=== PATIENT | male | born 1970 | race American Indian/Alaskan Native ===

== ENCOUNTER 2020-05-27 11:41 | Inpatient (IN) | payer MEDICAID ==
[2020-05-27 12:24] LABS: Basophils % (Auto) 0.4 % (0.0-1.8); Eosinophils # (Auto) 0.1 K/mm3 (0.0-0.4); Eosinophils % (Auto) 0.9 % (0.0-4.3); Hematocrit 35.8 % (35.5-45.6); Hemoglobin 11.7 gm/dl (11.8-15.2); Lymphocytes # (Auto) 2.5 K/mm3 (1.2-5.4); Lymphocytes % (Auto) 31.2 % (13.4-35.0); Mean Corpuscular HGB Conc 33 % (32-34); Mean Corpuscular Volume 82 fl (84-94); Monocytes # (Auto) 0.8 K/mm3 (0.0-0.8); Monocytes % (Auto) 9.9 % (0.0-7.3); Platelet Count 314 K/mm3 (140-440); Red Blood Count 4.37 M/mm3 (3.65-5.03); Red Cell Distribution Width 15.4 % (13.2-15.2)
--- NOTE | 2020-05-27 12:30 | XRay Report ---
CHEST 1 VIEW 05/27/2020 12:11 PM INDICATION / CLINICAL INFORMATION: dyspnea, speech deficit. COMPARISON: None available. FINDINGS: SUPPORT DEVICES: None. HEART / MEDIASTINUM: No significant abnormality. LUNGS / PLEURA: Clear lungs. No significant pleural effusion. No pneumothorax. ADDITIONAL FINDINGS: No significant additional findings. IMPRESSION: 1. No acute abnormality of the chest. Signer Name: Edis Kumari MD Signed: 05/27/2020 12:25 PM Workstation Name: [id number]
[2020-05-27 12:35] LABS: INR 0.91 (0.87-1.13)
[2020-05-27 12:36] LABS: Partial Thromboplastin Time 29.4 Sec. (24.2-36.6)
--- NOTE | 2020-05-27 12:38 | Emergency Department Report ---
Blank Doc - Documentation Documentation: [facility] Consult Note # Demographics Consult Type: Acute Stroke Level 2 (4.5-24 hrs) Patient Location: Emergency Room First Name: Varun Last Name: Johnson Gender: Male Time of Initial Page ( Time): 05/27/2020, 11:55 Time of Return Call ( Time): 05/27/2020, 11:55 # HPI History: took a prednisone, felt funny after and then people felt that his voice is slurred. no other deficits. has basleine right sided facial droop from a prior stroke, this is not new today # Scores Time of exam and NIHSS ( Time): 05/27/2020, 11:57 Level of Consciousness 1a: [0] = Alert; keenly responsive LOC Questions 1b: [0] = Answers both questions correctly LOC Commands 1c: [0] = Performs both tasks correctly Best Gaze 2: [0] = Normal Visual 3: [0] = No visual loss Facial Palsy 4: [2] = Partial paralysis Motor Arm Left 5a: [0] = No drift Motor Arm Right 5b: [0] = No drift Motor Leg Left 6a: [0] = No drift Motor Leg Right 6b: [0] = No drift Limb Ataxia 7: [0] = Absent Sensory 8: [0] = Normal Best Language 9: [1] = Veyg-je-tjxduzry aphasia Dysarthria 10: [1] = Matu-hi-acpbxqdw dysarthria Extinction and Inattention 11: [0] = No abnormality NIHSS Total: 4 # PMH-FH-SH Past Medical History: stroke # Assessment Impression: Ischemic Stroke (Subacute), Stroke Mimic # Plan Thrombolytic/Intervention: NOT IV Thrombolytic or IA Intervention Thrombolytic Exclusion: > 4.5 hours Intraarterial Exclusion: clinically consistent with small vessel disease Blood Pressure Management: labetolol Target Blood Pressure: SBP < 220, SBP > 100 Labs: hemoglobin A1c, lipid panel Imaging: (urgency: STAT in ED): CT Angiogram Head and CT Angiogram Neck AND call back with results if abnormal Imaging: (urgency: routine admission): MRI Brain without contrast Diagnostic Test: echo without bubble study Therapy/Evaluation: NPO until swallow evaluation, PT/OT evaluation, speech/ swallow consultation Medication: aspirin 81 mg daily, start statin with goal of LDL < 70 DVT Prophylaxis: SCD Other: LDL < 70, If patient has any neurological deterioration please call me back immediately, permissive hypertension, telemetry monitoring, I have discussed my recommendations with the referring provider Additional Recommendations: Metabolic and infectious evaluation. Disposition: admit # Logistics Telemedicine: Interactive 2 way audio and visual telecommunication technology was utilized during this visit
[2020-05-27 12:42] LABS: BUN/Creatinine Ratio 13; Blood Urea Nitrogen 17 mg/dL (9-20); Calcium 8.5 mg/dL (8.4-10.2); Hemolysis Index 41
[2020-05-27] MEDS ORDERED: ASPIRIN 81 MG TAB CHEW PO ONE (13:24)
--- NOTE | 2020-05-27 13:39 | Emergency Department Report ---
ED Neuro Deficit HPI - General Chief Complaint: Neuro Symptoms/Deficit Stated Complaint: STROKE Time Seen by Provider: 05/27/20 11:44 Source: EMS Mode of arrival: Stretcher Limitations: No Limitations - History of Present Illness Initial Comments: CC: trouble with speech HPI: THis is a 50 yo with hx of CVA ?Jackson's Palsy, HTN, DM, gout, dyslipidemia who presents with difficulty speaking since this morning. Patient was normal last night. He woke up approximately 8 or 9 AM with slurred speech. He also had difficulty getting his words out. The symptoms occurred shortly after taking prednisone. He denies trouble with walking. He denies paralysis. 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 He does not know if he had a stroke or if his diagnosis was Jackson's palsy. PCP Dr. Reggie Hanna -: Sudden, unknown Location: dysarthria, other (aphasia) History of same: No Place: home Severity: mild Improves With: none Worsens With: none On Anticoagulants: No Context: sudden onset Associated Symptoms: denies other symptoms Treatments Prior to Arrival: other (EMS transportation) - Related Data Home Medications: Home Medications Medication Instructions Recorded Confirmed Last Taken Albuterol Mdi (or & Nicu Only) 1 puff INHALATION PRN PRN 03/23/15 06/06/15 06/05/15 [ProAir HFA Inhaler] AtorvaSTATin [Lipitor] 40 mg PO DAILY 03/23/15 06/06/15 06/05/15 Docusate Sodium [Dok] 100 mg PO DAILY 03/23/15 06/06/15 Unknown Famotidine [Pepcid] 20 mg PO DAILY 03/23/15 06/06/15 Unknown Ferrous Sulfate [Feosol 325 MG tab] 325 mg PO DAILY 03/23/15 06/06/15 06/05/15 Indomethacin 50 mg PO PRN PRN 03/23/15 06/06/15 06/04/15 Lisinopril/Hydrochlorothiazide 1 tab PO DAILY 03/23/15 06/06/15 06/05/15 [Zestoretic 10-12.5 mg] predniSONE [Deltasone] 20 mg PO DAILY 03/23/15 06/06/15 Unknown Colchicine 0.6 mg PO DAILY 06/06/15 06/06/15 06/05/15 Furosemide [Lasix] 20 mg PO QDAY 06/06/15 06/06/15 06/05/15 Glimepiride 4 mg PO DAILY 06/06/15 06/06/15 06/05/15 Proventil 0.083% NEBS 90 mcg INHALATION Q4HR PRN 06/06/15 06/06/15 06/05/15 amLODIPine 10 mg PO DAILY 06/06/15 06/06/15 06/05/15 Allergies/Adverse Reactions: Allergies Allergy/AdvReac Type Severity Reaction Status Date / Time No Known Allergies Allergy Verified 07/30/14 13:04 ED Review of Systems ROS: Stated complaint: STROKE Other details as noted in HPI Comment: All other systems reviewed and negative Constitutional: denies: fever, malaise Respiratory: denies: cough, shortness of breath Gastrointestinal: denies: abdominal pain, nausea, vomiting Musculoskeletal: arthralgia (Recent gout flare) ED Past Medical Hx - Past Medical History Previous Medical History?: Yes Hx Hypertension: Yes Hx Diabetes: Yes Hx GERD: Yes Hx Asthma: Yes - Surgical History Past Surgical History?: Yes Hx Cholecystectomy: Yes - Social History Smoking Status: Never Smoker Substance Use Type: None - Medications Home Medications: Home Medications Medication Instructions Recorded Confirmed Last Taken Type Albuterol Mdi (or & Nicu Only) 1 puff INHALATION PRN PRN 03/23/15 06/06/15 06/05/15 History [ProAir HFA Inhaler] AtorvaSTATin [Lipitor] 40 mg PO DAILY 03/23/15 06/06/15 06/05/15 History Docusate Sodium [Dok] 100 mg PO DAILY 03/23/15 06/06/15 Unknown History Famotidine [Pepcid] 20 mg PO DAILY 03/23/15 06/06/15 Unknown History Ferrous Sulfate [Feosol 325 MG tab] 325 mg PO DAILY 03/23/15 06/06/15 06/05/15 History Indomethacin 50 mg PO PRN PRN 03/23/15 06/06/15 06/04/15 History Lisinopril/Hydrochlorothiazide 1 tab PO DAILY 03/23/15 06/06/15 06/05/15 History [Zestoretic 10-12.5 mg] predniSONE [Deltasone] 20 mg PO DAILY 03/23/15 06/06/15 Unknown History Colchicine 0.6 mg PO DAILY 06/06/15 06/06/15 06/05/15 History Furosemide [Lasix] 20 mg PO QDAY 06/06/15 06/06/15 06/05/15 History Glimepiride 4 mg PO DAILY 06/06/15 06/06/15 06/05/15 History Proventil 0.083% NEBS 90 mcg INHALATION Q4HR PRN 06/06/15 06/06/15 06/05/15 History amLODIPine 10 mg PO DAILY 06/06/15 06/06/15 06/05/15 History ED Neuro Physical Exam - General Limitations: No Limitations General appearance: alert, in no apparent distress Suspected Stroke: Yes - Head Head exam: Present: atraumatic, normocephalic - Eye Eye exam: Present: normal appearance - ENT ENT exam: Present: mucous membranes moist - Neck Neck exam: Present: normal inspection - Respiratory Respiratory exam: Present: normal lung sounds bilaterally. Absent: respiratory distress - Cardiovascular Cardiovascular Exam: Present: regular rate, normal rhythm, normal heart sounds. Absent: systolic murmur, diastolic murmur, rubs, gallop - GI/Abdominal GI/Abdominal exam: Present: soft, normal bowel sounds. Absent: distended, tenderness, guarding, rebound - Rectal Rectal exam: Present: deferred - Extremities Exam Extremities exam: Present: normal inspection - Neurological Exam Neurological exam: Present: alert, oriented X3 - NIHSS Assessment Interval: Baseline 1a. Level of Consciousness: alert/keenly responsive 1b. LOC Questions: answers both correctly 1c. LOC Commands: performs tasks correctly 2. Best Gaze: normal 3. Visual: no visual loss 4. Facial Palsy: unilateral complete paralysis 5b. Motor Arm Right: no drift 5a. Motor Arm Left: no drift 6a. Motor Leg Left: no drift 6b. Motor Leg Right: no drift 7. Limb Ataxia: absent 8. Sensory: normal 9. Best Language: mild/moderate aphasia 10. Dysarthria: mild/moderate dysarthria 11. Extinction/Inattention: no abnormality Total Score: 5 Stroke Severity: Moderate Stroke - Psychiatric Psychiatric exam: Present: normal affect, normal mood - Skin Skin exam: Present: warm, dry, intact, normal color. Absent: rash ED Course Vital Signs 05/27/20 12:04 Temperature 98.8 F Pulse Rate 74 Respiratory 24 Rate Blood Pressure 170/81 [Left] O2 Sat by Pulse 94 Oximetry - Lab Data Result diagrams: 05/27/20 12:09 05/27/20 12:09 Lab Results 05/27/20 05/27/20 05/27/20 Range/Units 12:09 12:09 12:09 WBC 8.0 (4.5-11.0) K/mm3 RBC 4.37 (3.65-5.03) M/mm3 Hgb 11.7 L (11.8-15.2) gm/dl Hct 35.8 (35.5-45.6) % MCV 82 L (84-94) fl MCH 27 L (28-32) pg MCHC 33 (32-34) % RDW 15.4 H (13.2-15.2) % Plt Count 314 (140-440) K/mm3 Lymph % (Auto) 31.2 (13.4-35.0) % [place] % (Auto) 9.9 H (0.0-7.3) % Eos % (Auto) 0.9 (0.0-4.3) % Baso % (Auto) 0.4 (0.0-1.8) % Lymph # (Auto) 2.5 (1.2-5.4) K/mm3 [place] # (Auto) 0.8 (0.0-0.8) K/mm3 Eos # (Auto) 0.1 (0.0-0.4) K/mm3 Baso # (Auto) 0.0 (0.0-0.1) K/mm3 Seg Neutrophils % 57.6 (40.0-70.0) % Seg Neutrophils # 4.6 (1.8-7.7) K/mm3 PT 12.2 (12.2-14.9) Sec. INR 0.91 (0.87-1.13) APTT 29.4 (24.2-36.6) Sec. Thrombin Time (15.1-19.6) Sec. Sodium 138 (137-145) mmol/L Potassium 4.2 (3.6-5.0) mmol/L Chloride 103.6 (98-107) mmol/L Carbon Dioxide 24 (22-30) mmol/L Anion Gap 15 mmol/L BUN 17 (9-20) mg/dL Creatinine 1.3 (0.8-1.3) mg/dL Estimated GFR > 60 ml/min BUN/Creatinine Ratio 13 % Glucose 88 (75-100) mg/dL Calcium 8.5 (8.4-10.2) mg/dL Troponin T < 0.010 (0.00-0.029) ng/mL NT-Pro-B Natriuret Pep (0-450) pg/mL 05/27/20 05/27/20 Range/Units 12:09 12:09 WBC (4.5-11.0) K/mm3 RBC (3.65-5.03) M/mm3 Hgb (11.8-15.2) gm/dl Hct (35.5-45.6) % MCV (84-94) fl MCH (28-32) pg MCHC (32-34) % RDW (13.2-15.2) % Plt Count (140-440) K/mm3 Lymph % (Auto) (13.4-35.0) % [place] % (Auto) (0.0-7.3) % Eos % (Auto) (0.0-4.3) % Baso % (Auto) (0.0-1.8) % Lymph # (Auto) (1.2-5.4) K/mm3 [place] # (Auto) (0.0-0.8) K/mm3 Eos # (Auto) (0.0-0.4) K/mm3 Baso # (Auto) (0.0-0.1) K/mm3 Seg Neutrophils % (40.0-70.0) % Seg Neutrophils # (1.8-7.7) K/mm3 PT (12.2-14.9) Sec. INR (0.87-1.13) APTT (24.2-36.6) Sec. Thrombin Time 16.9 (15.1-19.6) Sec. Sodium (137-145) mmol/L Potassium (3.6-5.0) mmol/L Chloride (98-107) mmol/L Carbon Dioxide (22-30) mmol/L Anion Gap mmol/L BUN (9-20) mg/dL Creatinine (0.8-1.3) mg/dL Estimated GFR ml/min BUN/Creatinine Ratio % Glucose (75-100) mg/dL Calcium (8.4-10.2) mg/dL Troponin T (0.00-0.029) ng/mL NT-Pro-B Natriuret Pep 42.01 (0-450) pg/mL - EKG Data -: EKG Interpreted by Me EKG shows normal: sinus rhythm, axis, intervals, QRS complexes, ST-T waves Rate: normal Interpretation: normal EKG 05/27/20 13:36 EKG obtained 1228 EKG interpreted by me Rate 75 bpm normal sinus rhythm normal rate normal axis normal intervals no ST elevation no ST-T signs of ischemia normal EKG - Radiology Data Radiology results: report reviewed Chest radiograph: No acute process according radiology findings, CT head no acute findings according to radiology impression CT head/brain wo con INDICATION / CLINICAL INFORMATION: 62 years Male; 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 TECHNIQUE: Routine CT head without contrast. All CT scans at this location are performed using CT dose reduction for ALARA by means of automated exposure control. COMPARISON: None. FINDINGS: BRAIN / INTRACRANIAL CONTENTS: Encephalomalacia seen in the right frontal and temporal lobes-would question history of prior trauma. Otherwise, no acute hemorrhage, mass effect, midline shift, hydrocephalus, or acute, large territorial infarct. No signs of significant atrophy or chronic infarct. No significant white matter abnormality seen. CRANIOCERVICAL JUNCTION: No significant abnormality. ORBITS: No significant abnormality of visualized orbits. SINUSES / MASTOIDS: Mild mucosal thickening seen in the ethmoids. There is also mild mucosal thickening suggested in the mastoids. ADDITIONAL FINDINGS: None. IMPRESSION: 1. No focal mass, hemorrhage, hydrocephalus, or acute, large territorial infarct. - Medical Decision Making Clinical impression TIA with aphasia dysarthria indicative of small vessel disease. CT angiogram of the head and neck not performed due to resolved symptoms. Thrombectomy is not indicated in this scenario. Patient received aspirin therapy. Work-up otherwise unremarkable CBC chemistry PT PTT within normal limits. Patient is admitted to the hospitalist service. Critical care attestation.: If time is entered above; I have spent that time in minutes in the direct care of this critically ill patient, excluding procedure time. ED Disposition Clinical Impression: TIA (transient ischemic attack) Disposition: OP ADMIT IP TO THIS HOSP Is pt being admited?: Yes Does the pt Need Aspirin: No
--- NOTE | 2020-05-27 16:44 | History and Physical Report ---
History of Present Illness Date of examination: 05/27/20 Date of admission: 05/27/20 13:47 Chief complaint: Difficulty talking and left-sided weakness since morning History of present illness: 50-year-old with history of questionable cerebrovascular accident comes in for right facial weakness and difficulty talking because of the right facial weakness. No weakness in the right upper extremity and right lower extremity. Patient was normal last night. Patient has some slurred speech because of the right facial weakness. Able to move his right upper and right lower extremity. Can walk. - Past Medical History -- Yes --Hypertension: Yes --Diabetes: Yes --GERD: Yes --Asthma: Yes - Surgical History Past Surgical History?: Yes --Cholecystectomy: Yes - Social History Smoking Status: Never Smoker Review of Systems ROS: Constitutional no weight loss or weight gain no fever or chills HEENT no sore throat no post nasal drip no diplopia Neck no neck stiffness no lymph gland enlargement Chest and lungs no shortness of breath cough or wheezing CVS no chest pain no diaphoresis no palpitations GI no nausea no vomiting no diarrhea Genitourinary system no dysuria no flank pain Musculoskeletal system no muscle pains no joint pains 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 Skin no rash no itching Psychiatric no depression no homicidal or suicidal tendencies Hematologic no lymphedema or bruising Endocrine no polydipsia no polyuria no cold intolerance no heat intolerance Medications and Allergies Allergies Allergy/AdvReac Type Severity Reaction Status Date / Time No Known Allergies Allergy Verified 07/30/14 13:04 Home Medications Medication Instructions Recorded Confirmed Last Taken Type Albuterol Mdi (or & Nicu Only) 1 puff INHALATION PRN PRN 03/23/15 05/27/20 06/05/15 History [ProAir HFA Inhaler] AtorvaSTATin [Lipitor] 40 mg PO DAILY 03/23/15 05/27/20 1 Day Ago History ~05/26/20 Docusate Sodium [Dok] 100 mg PO DAILY 03/23/15 05/27/20 Unknown History Famotidine [Pepcid] 20 mg PO DAILY 03/23/15 05/27/20 1 Day Ago History ~05/26/20 Ferrous Sulfate [Feosol 325 MG tab] 325 mg PO DAILY 03/23/15 05/27/20 1 Day Ago History ~05/26/20 predniSONE [Deltasone] 20 mg PO DAILY 03/23/15 05/27/20 Unknown History Glimepiride 4 mg PO DAILY 06/06/15 05/27/20 1 Day Ago History ~05/26/20 Proventil 0.083% NEBS 90 mcg INHALATION Q4HR PRN 06/06/15 05/27/20 06/05/15 History Ascorbic Acid [Vitamin C] 1,000 mg PO 05/27/20 1 Day Ago History ~05/26/20 Gabapentin 300 mg PO BID 05/27/20 05/27/20 1 Week Ago History ~05/20/20 Tizanidine HCl [Zanaflex 2mg CAP] 2 mg PO TID 05/27/20 05/27/20 2 Days Ago Histo ry ~05/25/20 Torsemide [Demadex] 20 mg PO BID 05/27/20 05/27/20 1 Day Ago History ~05/26/20 labetaloL [Labetalol 200mg TAB] 200 mg PO BID 05/27/20 05/27/20 1 Day Ago History ~05/26/20 Exam - Constitutional Vitals: Temp Pulse Resp BP Pulse Ox 98.8 F 75 13 160/85 97 05/27/20 12:04 05/27/20 13:54 05/27/20 13:54 05/27/20 13:54 05/27/20 13:54 General appearance: Present: no acute distress, well-nourished - EENT Eyes: Present: PERRL ENT: hearing intact, clear oral mucosa - Neck Neck: Present: supple, normal ROM - Respiratory Respiratory effort: normal Respiratory: bilateral: CTA - Cardiovascular Heart rate: 78 Rhythm: regular Heart Sounds: Present: S1 & S2. Absent: rub, click - Extremities Extremities: pulses symmetrical, No edema Peripheral Pulses: within normal limits - Abdominal General gastrointestinal: Present: soft, non-tender, non-distended, normal bowel sounds Male genitourinary: Present: normal - Integumentary Integumentary: Present: clear, warm, dry - Musculoskeletal Musculoskeletal: strength equal bilaterally, other (Right facial weakness) - Psychiatric Psychiatric: appropriate mood/affect, intact judgment & insight - Neurologic Neurologic: CNII-XII intact, moves all extremities, other (Right facial weakness) - Allied Health Allied health notes reviewed: nursing, case management HEART Score - HEART Score History: Moderately suspicious Age: 45-65 Risk factors: 1-2 risk factors Troponin: Troponin T < 0.010 ng/mL (0.00-0.029) 05/27/20 12:09 Troponin: < normal limit - Critical Actions Critical Actions: 0-3 pts:0.9-1.7%risk of adverse cardiac event.Candidate for discharge Results - Labs CBC & Chem 7: 05/28/20 04:32 05/28/20 04:32 Labs: Laboratory Last Values WBC 8.0 K/mm3 (4.5-11.0) 05/27/20 12:09 RBC 4.37 M/mm3 (3.65-5.03) 05/27/20 12:09 Hgb 11.7 gm/dl (11.8-15.2) L 05/27/20 12:09 Hct 35.8 % (35.5-45.6) 05/27/20 12:09 MCV 82 fl (84-94) L 05/27/20 12:09 MCH 27 pg (28-32) L 05/27/20 12:09 MCHC 33 % (32-34) 05/27/20 12:09 RDW 15.4 % (13.2-15.2) H 05/27/20 12:09 Plt Count 314 K/mm3 (140-440) 05/27/20 12:09 Lymph % (Auto) 31.2 % (13.4-35.0) 05/27/20 12:09 [place] % (Auto) 9.9 % (0.0-7.3) H 05/27/20 12:09 Eos % (Auto) 0.9 % (0.0-4.3) 05/27/20 12:09 Baso % (Auto) 0.4 % (0.0-1.8) 05/27/20 12:09 Lymph # (Auto) 2.5 K/mm3 (1.2-5.4) 05/27/20 12:09 [place] # (Auto) 0.8 K/mm3 (0.0-0.8) 05/27/20 12:09 Eos # (Auto) 0.1 K/mm3 (0.0-0.4) 05/27/20 12:09 Baso # (Auto) 0.0 K/mm3 (0.0-0.1) 05/27/20 12:09 Seg Neutrophils % 57.6 % (40.0-70.0) 05/27/20 12:09 Seg Neutrophils # 4.6 K/mm3 (1.8-7.7) 05/27/20 12:09 PT 12.2 Sec. (12.2-14.9) 05/27/20 12:09 INR 0.91 (0.87-1.13) 05/27/20 12:09 APTT 29.4 Sec. (24.2-36.6) 05/27/20 12:09 Thrombin Time 16.9 Sec. (15.1-19.6) 05/27/20 12:09 Sodium 138 mmol/L (137-145) 05/27/20 12:09 Potassium 4.2 mmol/L (3.6-5.0) 05/27/20 12:09 Chloride 103.6 mmol/L (98-107) 05/27/20 12:09 Carbon Dioxide 24 mmol/L (22-30) 05/27/20 12:09 Anion Gap 15 mmol/L 05/27/20 12:09 BUN 17 mg/dL (9-20) 05/27/20 12:09 Creatinine 1.3 mg/dL (0.8-1.3) 05/27/20 12:09 Estimated GFR > 60 ml/min 05/27/20 12:09 BUN/Creatinine Ratio 13 % 05/27/20 12:09 Glucose 88 mg/dL (75-100) 05/27/20 12:09 Calcium 8.5 mg/dL (8.4-10.2) 05/27/20 12:09 Troponin T < 0.010 ng/mL (0.00-0.029) 05/27/20 12:09 NT-Pro-B Natriuret Pep 42.01 pg/mL (0-450) 05/27/20 12:09 Short CBC 05/27/20 Range/Units 12:09 WBC 8.0 (4.5-11.0) K/mm3 Hgb 11.7 L (11.8-15.2) gm/dl Hct 35.8 (35.5-45.6) % Plt Count 314 (140-440) K/mm3 BMP 05/27/20 12:09 Sodium 138 Potassium 4.2 Chloride 103.6 Carbon Dioxide 24 BUN 17 Creatinine 1.3 Glucose 88 Calcium 8.5 Cardiac Enzymes 05/27/20 Range/Units 12:09 Troponin T < 0.010 (0.00-0.029) ng/mL Short CBC 05/27/20 05/28/20 Range/Units 12:09 04:32 WBC 8.0 5.9 (4.5-11.0) K/mm3 Hgb 11.7 L 12.2 (11.8-15.2) gm/dl Hct 35.8 36.0 (35.5-45.6) % Plt Count 314 301 (140-440) K/mm3 BMP 05/27/20 05/28/20 12:09 04:32 Sodium 138 140 Potassium 4.2 4.2 Chloride 103.6 103.2 Carbon Dioxide 24 26 BUN 17 16 Creatinine 1.3 1.2 Glucose 88 104 H Calcium 8.5 8.6 Cardiac Enzymes 05/27/20 Range/Units 12:09 Troponin T < 0.010 (0.00-0.029) ng/mL Liver Function 05/28/20 Range/Units 04:32 Total Bilirubin 0.70 (0.1-1.2) mg/dL AST 24 (5-40) units/L ALT 27 (7-56) units/L Alkaline Phosphatase 68 (35-129) units/L Albumin 3.9 (3.9-5) g/dL - Imaging and Cardiology EKG: report reviewed (Sinus rhythm no acute ST-T wave changes LVH criteria present) CT Scan - head: report reviewed Imaging and Cardiology: Normal chest x-ray no acute findings Assessment and Plan Advance Directives: Yes (Full code) VTE prophylaxis?: Chemical Plan of care discussed with patient/family: Yes - Patient Problems (1) TIA (transient ischemic attack) Current Visit: Yes Status: Acute Plan to address problem: TIA work-up MRI of the brain Possible discharge tomorrow after MRI 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 (2) Jackson's palsy Current Visit: Yes Status: Acute Plan to address problem: Patient initiated on prednisone Physical therapy Physical therapy as outpatient for the right side face patency (3) Hypertension Current Visit: Yes Status: Chronic Qualifiers: Hypertension type: essential hypertension Qualified Code(s): I10 - Essential (primary) hypertension Plan to address problem: Continue antihypertensives and adjust medications (4) Sleep apnea Current Visit: Yes Status: Chronic Plan to address problem: On CPAP at nighttime (5) Type 2 diabetes mellitus Current Visit: Yes Status: Chronic Qualifiers: Diabetes mellitus fci insulin use: unspecified fci insulin use status Plan to address problem: Check hemoglobin A1c Continue coverage Continue oral hypoglycemics (6) Morbid obesity Current Visit: Yes Status: Chronic Plan to address problem: Patient to follow-up with Dr. Miranda for bariatric surgery evaluation (7) DVT prophylaxis Current Visit: Yes Status: Acute Plan to address problem: On heparin and GI prophylaxis
[2020-05-27] MEDS ORDERED: ALBUTEROL 8.5 GM MDI INHALATION IH PRN (17:20)
[2020-05-27] MEDS ORDERED: NON-FORMULARY EACH (Glimepiride 4 MG) PO SCH (17:30)
[2020-05-27] MEDS ORDERED: NON-FORMULARY EACH (Amlodipine 10 MG) PO SCH (17:30)
[2020-05-27] MEDS ORDERED: COLCHICINE 0.6 MG PO SCH (17:30)
[2020-05-27] MEDS ORDERED: PROVENTIL INHALATION PRN (17:31)
[2020-05-27] MEDS ORDERED: IBUPROFEN 600 MG TAB PO PRN (17:37)
[2020-05-27] MEDS ORDERED: ONDANSETRON 4 MG/2 ML INJ IV PRN (17:37)
[2020-05-27] MEDS ORDERED: ACETAMINOPHEN 325 MG TAB PO PRN (17:37)
[2020-05-27] MEDS ORDERED: MORPHINE 2 MG/1 ML INJ IV PRN (17:37)
[2020-05-27] MEDS ORDERED: SODIUM CHLORIDE 0.9% 1000 ML 1,000 ML IV SCH (17:45)
[2020-05-27] MEDS ORDERED: ALBUTEROL 2.5 MG/3 ML NEBU IH PRN (17:45)
[2020-05-27] MEDS ORDERED: FAMOTIDINE 20 MG TAB PO SCH (18:00)
[2020-05-27] MEDS ORDERED: FUROSEMIDE 20 MG TAB PO SCH (18:00)
[2020-05-27] MEDS ORDERED: LISINOPRIL 10 MG TAB PO SCH (20:00)
[2020-05-27] MEDS: amLODIPine 10 MG TAB PO SCH (22:27)
[2020-05-27] MEDS: DOCUSATE SODIUM 100 MG CAP PO SCH (22:27)
[2020-05-27] MEDS: FERROUS SULFATE 325 MG TAB PO SCH (22:27)
[2020-05-27] MEDS: HEPARIN 5,000 UNIT/1 ML VIAL SUB-Q SCH (22:28)
[2020-05-27] MEDS: FAMOTIDINE 20 MG TAB PO SCH (22:28)
[2020-05-27] MEDS ORDERED: NON-FORMULARY EACH (Torsemide [Demadex] 20 MG Tablet) PO SCH (23:30)
[2020-05-28] MEDS: VALSARTAN 160MG TAB PO SCH ×3 (00:28→21:21)
[2020-05-28] MEDS: GABAPENTIN 300 MG CAP PO SCH ×3 (00:30→21:21)
[2020-05-28 05:41] LABS: Basophils # (Auto) 0.1 K/mm3 (0.0-0.1); Eosinophils # (Auto) 0.1 K/mm3 (0.0-0.4); Eosinophils % (Auto) 2.1 % (0.0-4.3); Hemoglobin 12.2 gm/dl (11.8-15.2); Lymphocytes # (Auto) 2.6 K/mm3 (1.2-5.4); Lymphocytes % (Auto) 44.2 % (13.4-35.0); Mean Corpuscular HGB Conc 34 % (32-34); Mean Corpuscular Volume 82 fl (84-94); Monocytes # (Auto) 0.6 K/mm3 (0.0-0.8); Monocytes % (Auto) 10.9 % (0.0-7.3); Platelet Count 301 K/mm3 (140-440); Red Cell Distribution Width 15.3 % (13.2-15.2)
[2020-05-28 06:00] LABS: Alanine Aminotransferase 27 units/L (7-56); Albumin 3.9 g/dL (3.9-5); BUN/Creatinine Ratio 13; Blood Urea Nitrogen 16 mg/dL (9-20); Calcium 8.6 mg/dL (8.4-10.2); Hemolysis Index 10
[2020-05-28] MEDS: TORSEMIDE 10 MG TAB PO SCH ×2 (06:12→17:28)
[2020-05-28] MEDS ORDERED: TIZANIDINE HCL 2 MG PO SCH (08:00)
[2020-05-28] MEDS ORDERED: NON-FORMULARY EACH (Lisinopril/Hydrochlorothiazide [Zestoretic 10-12.5 Mg] 1 EACH Tablet) PO SCH (10:00)
[2020-05-28] MEDS ORDERED: COLCHICINE 0.6 MG CAP PO SCH (10:00)
[2020-05-28] MEDS ORDERED: NON-FORMULARY EACH (Ascorbic Acid [Vitamin C] 1,000 MG Tablet) PO SCH (10:00)
[2020-05-28] MEDS: GLIMEPIRIDE 4 MG TAB PO SCH (10:11)
[2020-05-28] MEDS: tiZANidine TAB 4 MG TAB PO SCH ×3 (10:12→21:22)
[2020-05-28] MEDS: FERROUS SULFATE 325 MG TAB PO SCH (10:12)
[2020-05-28] MEDS: ASCORBIC ACID 500 MG TAB PO SCH (10:12)
[2020-05-28] MEDS: FAMOTIDINE 20 MG TAB PO SCH ×2 (10:12→21:22)
[2020-05-28] MEDS: amLODIPine 10 MG TAB PO SCH (10:12)
[2020-05-28] MEDS: HEPARIN 5,000 UNIT/1 ML VIAL SUB-Q SCH ×2 (10:13→21:23)
[2020-05-28] MEDS: predniSONE 20 MG TAB PO SCH (10:13)
[2020-05-28] MEDS: DOCUSATE SODIUM 100 MG CAP PO SCH (10:15)
--- NOTE | 2020-05-29 03:01 | Progress Note ---
Assessment and Plan - Patient Problems (1) TIA (transient ischemic attack) Status: Acute Plan to address problem: TIA work-up MRI of the brain Possible discharge tomorrow after MRI 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 (2) Jackson's palsy Status: Acute Plan to address problem: Patient initiated on prednisone Physical therapy Physical therapy as outpatient for the right side face patency (3) Hypertension Status: Chronic Qualifiers: Hypertension type: essential hypertension Qualified Code(s): I10 - Essential (primary) hypertension Plan to address problem: Continue antihypertensives and adjust medications (4) Sleep apnea Status: Chronic Plan to address problem: On CPAP at nighttime (5) Type 2 diabetes mellitus Status: Chronic Qualifiers: 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 Miranda for bariatric surgery evaluation (7) DVT prophylaxis Status: Acute Plan to address problem: On heparin and GI prophylaxis Subjective Date of service: 05/28/20 Principal diagnosis: TIA, right 7 Jackson's palsy Interval history: History of present illness: 50-year-old with history of questionable cerebrovascular accident comes in for right facial weakness and difficulty talking because of the right facial weakness. No weakness in the right upper extremity and right lower extremity. Patient was normal last night. Patient has some slurred speech because of the right facial weakness. Able to move his right upper and right lower extremity. Can walk. #2 05/28/2020 MRI could not be done because of his weight Right facial palsy process No weakness in both right upper extremity and right lower extremity. Objective - Constitutional Vitals: Vital Signs - 12hr 05/28/20 05/28/20 05/28/20 16:35 19:44 21:21 Temperature 98.2 F 98.0 F Pulse Rate 84 88 92 H Respiratory 18 22 Rate Blood Pressure 118/65 143/64 143/64 O2 Sat by Pulse 95 93 Oximetry 05/28/20 05/29/20 22:00 00:11 Temperature 98.0 F Pulse Rate 67 Respiratory 20 Rate Blood Pressure 100/53 O2 Sat by Pulse 97 96 Oximetry General appearance: Present: no acute distress, well-nourished - EENT Eyes: PERRL, EOM intact ENT: hearing intact, clear oral mucosa Ears: bilateral: normal - Neck Neck: supple, normal ROM - Respiratory Respiratory effort: normal Respiratory: bilateral: CTA - Breasts Breasts: normal - Cardiovascular Heart rate: 78 Rhythm: regular Heart Sounds: Present: S1 & S2. Absent: gallop, rub Extremities: no ischemia, pulses intact, No edema, normal color, Full ROM - Gastrointestinal General gastrointestinal: Present: soft, non-tender, non-distended, normal bowel sounds - Genitourinary Male genitourinary: normal - Integumentary Integumentary: clear, warm, dry - Musculoskeletal Musculoskeletal: 1, strength equal bilaterally - Neurologic Neurologic: moves all extremities - Psychiatric Psychiatric: memory intact, appropriate mood/affect, intact judgment & insight - Allied health notes Allied health notes reviewed: nursing, case management - Labs CBC & Chem 7: 05/28/20 04:32 05/28/20 04:32 Labs: Abnormal lab results 05/28/20 05/28/20 05/28/20 Range/Units 04:32 04:32 04:32 MCV 82 L (84-94) fl RDW 15.3 H (13.2-15.2) % Lymph % (Auto) 44.2 H (13.4-35.0) % Grundy % (Auto) 10.9 H (0.0-7.3) % Glucose 104 H (75-100) mg/dL Hemoglobin A1c 6.5 H (4-6) % HEART Score - HEART Score Age: 45-65 Risk factors: 1-2 risk factors Troponin: Troponin T < 0.010 ng/mL (0.00-0.029) 05/27/20 12:09 Troponin: < normal limit - Critical Actions Critical Actions: 0-3 pts:0.9-1.7%risk of adverse cardiac event.Candidate for discharge
[2020-05-29] MEDS: TORSEMIDE 10 MG TAB PO SCH ×2 (05:46→17:17)
--- NOTE | 2020-05-29 09:52 | Progress Note ---
Assessment and Plan Assessment and plan: (1) TIA (transient ischemic attack) Current Visit: Yes Status: Acute Plan to address problem: TIA work-up MRI of the brain Possible discharge tomorrow after MRI 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 (2) Jackson's palsy Current Visit: Yes Status: Acute Plan to address problem: Patient initiated on prednisone Physical therapy Physical therapy as outpatient for the right side face patency (3) Hypertension Current Visit: Yes Status: Chronic Qualifiers: Hypertension type: essential hypertension Qualified Code(s): I10 - Essential (primary) hypertension Plan to address problem: Continue antihypertensives and adjust medications (4) Sleep apnea Current Visit: Yes Status: Chronic Plan to address problem: On CPAP at nighttime (5) Type 2 diabetes mellitus Current Visit: Yes Status: Chronic Qualifiers: Diabetes mellitus [facility] insulin use: 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 Miranda for bariatric surgery evaluation (7) DVT prophylaxis Current Visit: Yes Status: Acute Plan to address problem: On heparin and GI prophylaxis 05/29/2020 -MRI head, carotid Doppler and CT head reading is pending -Blood pressure is controlled -Labs are unremarkable Patient will be discharged once MRI is done. History Interval history: Patient was seen and evaluated this morning Patient is admitted for facial palsy Hospitalist Physical - Physical exam Narrative exam: Not in cardiopulmonary distress. The patient appeared well nourished and normally developed. Vital signs as documented. Head exam is unremarkable. No scleral icterus . Neck is without jugular venous distension, thyromegaly, or carotid bruits. Lungs are clear to auscultation. Cardiac exam reveals regular rate and Rhythm. Abdominal exam reveals normal bowel sounds, nontender, no organomegaly. Extremities are nonedematous and both femoral and pedal pulses are normal. EMBLEM CUTTER: Alert and oriented 3. Facial droop. - Constitutional Vitals: Temp Pulse Resp BP Pulse Ox 97.4 F L 83 18 124/82 96 05/29/20 08:00 05/29/20 08:00 05/29/20 08:00 05/29/20 08:00 05/29/20 08:00 General appearance: Present: no acute distress, well-nourished HEART Score - HEART Score Age: 45-65 Risk factors: 1-2 risk factors Troponin: Troponin T < 0.010 ng/mL (0.00-0.029) 05/27/20 12:09 Troponin: < normal limit - Critical Actions Critical Actions: 0-3 pts:0.9-1.7%risk of adverse cardiac event.Candidate for discharge Results - Labs CBC & Chem 7: 05/28/20 04:32 05/28/20 04:32 Labs: Laboratory Last Values WBC 5.9 K/mm3 (4.5-11.0) 05/28/20 04:32 RBC 4.40 M/mm3 (3.65-5.03) 05/28/20 04:32 Hgb 12.2 gm/dl (11.8-15.2) 05/28/20 04:32 Hct 36.0 % (35.5-45.6) 05/28/20 04:32 MCV 82 fl (84-94) L 05/28/20 04:32 MCH 28 pg (28-32) 05/28/20 04:32 MCHC 34 % (32-34) 05/28/20 04:32 RDW 15.3 % (13.2-15.2) H 05/28/20 04:32 Plt Count 301 K/mm3 (140-440) 05/28/20 04:32 Lymph % (Auto) 44.2 % (13.4-35.0) H 05/28/20 04:32 Keith % (Auto) 10.9 % (0.0-7.3) H 05/28/20 04:32 Eos % (Auto) 2.1 % (0.0-4.3) 05/28/20 04:32 Baso % (Auto) 1.0 % (0.0-1.8) 05/28/20 04:32 Lymph # (Auto) 2.6 K/mm3 (1.2-5.4) 05/28/20 04:32 Keith # (Auto) 0.6 K/mm3 (0.0-0.8) 05/28/20 04:32 Eos # (Auto) 0.1 K/mm3 (0.0-0.4) 05/28/20 04:32 Baso # (Auto) 0.1 K/mm3 (0.0-0.1) 05/28/20 04:32 Seg Neutrophils % 41.8 % (40.0-70.0) 05/28/20 04:32 Seg Neutrophils # 2.5 K/mm3 (1.8-7.7) 05/28/20 04:32 PT 12.2 Sec. (12.2-14.9) 05/27/20 12:09 INR 0.91 (0.87-1.13) 05/27/20 12:09 APTT 29.4 Sec. (24.2-36.6) 05/27/20 12:09 Thrombin Time 16.9 Sec. (15.1-19.6) 05/27/20 12:09 Sodium 140 mmol/L (137-145) 05/28/20 04:32 Potassium 4.2 mmol/L (3.6-5.0) 05/28/20 04:32 Chloride 103.2 mmol/L (98-107) 05/28/20 04:32 Carbon Dioxide 26 mmol/L (22-30) 05/28/20 04:32 Anion Gap 15 mmol/L 05/28/20 04:32 BUN 16 mg/dL (9-20) 05/28/20 04:32 Creatinine 1.2 mg/dL (0.8-1.3) 05/28/20 04:32 Estimated GFR > 60 ml/min 05/28/20 04:32 BUN/Creatinine Ratio 13 % 05/28/20 04:32 Glucose 104 mg/dL (75-100) H 05/28/20 04:32 POC Glucose 106 mg/dL (70-105) H 05/27/20 22:17 Hemoglobin A1c 6.5 % (4-6) H 05/28/20 04:32 Calcium 8.6 mg/dL (8.4-10.2) 05/28/20 04:32 Total Bilirubin 0.70 mg/dL (0.1-1.2) 05/28/20 04:32 AST 24 units/L (5-40) 05/28/20 04:32 ALT 27 units/L (7-56) 05/28/20 04:32 Alkaline Phosphatase 68 units/L (35-129) 05/28/20 04:32 Troponin T < 0.010 ng/mL (0.00-0.029) 05/27/20 12:09 NT-Pro-B Natriuret Pep 42.01 pg/mL (0-450) 05/27/20 12:09 Total Protein 7.0 g/dL (6.3-8.2) 05/28/20 04:32 Albumin 3.9 g/dL (3.9-5) 05/28/20 04:32 Albumin/Globulin Ratio 1.3 % 05/28/20 04:32 Arceo/IV: Voiding Method Toilet Active Medications - Current Medications Current Medications: Generic Name Dose Route Start Last Admin Trade Name Freq PRN Reason Stop Dose Admin Acetaminophen 650 mg 05/27/20 17:37 05/28/20 06:41 Acetaminophen 325 Mg Tab PO 650 mg Q4H PRN Administration Pain MILD(1-3)/Fever >100.5/SMALLS Albuterol 2.5 mg 05/27/20 17:45 Albuterol 2.5 Mg/3 Ml Nebu IH Q4HRT PRN Shortness Of Breath Amlodipine Besylate 10 mg 05/27/20 20:00 05/28/20 10:12 Amlodipine 10 Mg Tab PO 10 mg DAILY JASPER Administration Ascorbic Acid 1,000 mg 05/28/20 10:00 05/28/20 10:12 Ascorbic Acid 500 Mg Tab PO 1,000 mg QDAY JASPER Administration Atorvastatin Calcium 40 mg 05/27/20 17:30 05/28/20 10:12 Atorvastatin 40 Mg Tab PO 40 mg DAILY JASPER Administration Colchicine 0.6 mg 05/28/20 10:00 05/28/20 10:16 Colchicine 0.6 Mg Cap PO 0.6 mg QDAY JASPER Administration Docusate Sodium 100 mg 05/27/20 18:00 05/28/20 10:15 Docusate Sodium 100 Mg Cap PO 100 mg DAILY JASPER Administration Famotidine 20 mg 05/27/20 22:00 05/28/20 21:22 Famotidine 20 Mg Tab PO 20 mg BID JASPER Administration Ferrous Sulfate 325 mg 05/27/20 18:00 05/28/20 10:12 Ferrous Sulfate 325 Mg Tab PO 325 mg DAILY JASPER Administration Gabapentin 300 mg 05/27/20 23:45 05/28/20 21:21 Gabapentin 300 Mg Cap PO 300 mg BID JASPER Administration Glimepiride 4 mg 05/28/20 08:00 05/28/20 10:11 Glimepiride 4 Mg Tab PO 4 mg QDDIAB JASPER Administration Heparin Sodium (Porcine) 5,000 unit 05/27/20 22:00 05/28/20 21:23 Heparin 5,000 Unit/1 Ml Vial SUB-Q 5,000 unit Q12HR JASPER Administration Sodium Chloride 1,000 mls @ 75 mls/hr 05/27/20 17:45 05/28/20 02:30 Nacl 0.9% 1000 Ml IV 75 mls/hr DIRECT JASPER Administration Ibuprofen 600 mg 05/27/20 17:37 05/28/20 11:45 Ibuprofen 600 Mg Tab PO 600 mg Q6H PRN Administration Pain, Mild (1-3) Labetalol HCl 200 mg 05/27/20 23:45 05/28/20 21:21 Labetalol 200 Mg Tab PO 200 mg BID JASPER Administration Morphine Sulfate 2 mg 05/27/20 17:37 Morphine 2 Mg/1 Ml Inj IV Q4H PRN Pain, Moderate (4-6) Ondansetron HCl 4 mg 05/27/20 17:37 Ondansetron 4 Mg/2 Ml Inj IV Q8H PRN Nausea And Vomiting Prednisone 20 mg 05/28/20 10:00 05/28/20 10:13 Prednisone 20 Mg Tab PO 20 mg DAILY JASPER Administration Sodium Chloride 10 ml 05/27/20 22:00 05/28/20 21:23 Sodium Chloride 0.9% 10 Ml Flush Syringe IV 10 ml BID JASPER Administration Sodium Chloride 10 ml 05/27/20 17:37 Sodium Chloride 0.9% 10 Ml Flush Syringe IV PRN PRN LINE FLUSH Tizanidine HCl 2 mg 05/28/20 08:00 05/28/20 21:22 Tizanidine Tab 4 Mg Tab PO 2 mg TID JASPER Administration Torsemide 20 mg 05/28/20 06:00 05/29/20 05:46 Torsemide 10 Mg Tab PO 20 mg BID@0600,1800 JASPER Administration Valsartan 160 mg 05/27/20 23:45 05/28/20 21:21 Valsartan 160mg Tab PO 160 mg BID JASPER Administration
[2020-05-29] MEDS ORDERED: COLCHICINE 0.6 MG TAB PO SCH (10:00)
[2020-05-29] MEDS: FERROUS SULFATE 325 MG TAB PO SCH (10:36)
[2020-05-29] MEDS: tiZANidine TAB 4 MG TAB PO SCH ×2 (10:36→14:08)
[2020-05-29] MEDS: amLODIPine 10 MG TAB PO SCH (10:36)
[2020-05-29] MEDS: VALSARTAN 160MG TAB PO SCH (10:36)
[2020-05-29] MEDS: GABAPENTIN 300 MG CAP PO SCH (10:36)
[2020-05-29] MEDS: predniSONE 20 MG TAB PO SCH (10:36)
[2020-05-29] MEDS: ASCORBIC ACID 500 MG TAB PO SCH (10:36)
[2020-05-29] MEDS: HEPARIN 5,000 UNIT/1 ML VIAL SUB-Q SCH (10:37)
[2020-05-29] MEDS: DOCUSATE SODIUM 100 MG CAP PO SCH (10:37)
[2020-05-29] MEDS: GLIMEPIRIDE 4 MG TAB PO SCH (10:37)
[2020-05-29] MEDS: FAMOTIDINE 20 MG TAB PO SCH (10:38)
[2020-05-29] MEDS ORDERED: dexAMETHasone 4 MG/ML VIAL IV SCH (16:00)
[2020-05-29 16:56] VITALS: BP 128/69
--- NOTE | 2020-05-29 17:28 | Discharge Summary ---
Providers - Providers Date of Admission: 05/27/20 13:47 Date of discharge: 05/29/20 Attending physician: CASSIDY RIVAS MD 05/27/20 Consult to Case Management [CONS] Routine Services Needed at Discharge: Physical Therapy Notified:: foster care case managergeographic information systems manager physician: CRISS ACOSTA MD Hospitalization Condition: Stable Hospital course: Subjective Date of service: 05/29/20 Principal diagnosis: TIA, right 7 Jackson's palsy Interval history: History of present illness: 50-year-old with history of questionable cerebrovascular accident comes in for right facial weakness and difficulty talking because of the right facial we akness. No weakness in the right upper extremity and right lower extremity. Patient was normal last night. Patient has some slurred speech because of the right facial weakness. Able to move his right upper and right lower extremity. Can walk. #2 05/28/2020 MRI could not be done because of his weight Right facial palsy process No weakness in both right upper extremity and right lower extremity. Day #3 05/30/20192030 Patient feeling much better Right facial paralysis persists No weakness in the right upper and right lower extremity Patient could not be fitted into MRI table because of his weight Patient counseled about his weight and to follow-up with bariatric surgery as outpatient Assessment and Plan - Patient Problems (1) TIA (transient ischemic attack) Status: Acute Plan to address problem: TIA work-up MRI of the brain Possible discharge tomorrow after MRI 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 (2) Jackson's palsy Status: Acute Plan to address problem: Patient initiated on prednisone Physical therapy Physical therapy as outpatient for the right side face patency (3) Hypertension Status: Chronic Qualifiers: Hypertension type: essential hypertension Qualified Code(s): I10 - Essential (primary) hypertension Plan to address problem: Continue antihypertensives and adjust medications (4) Sleep apnea Status: Chronic Plan to address problem: On CPAP at nighttime (5) Type 2 diabetes mellitus Status: Chronic Qualifiers: Diabetes mellitus correction insulin use: unspecified correction insulin use status Plan to address problem: Check hemoglobin A1c Continue coverage Continue oral hypoglycemics (6) Morbid obesity Status: Chronic Plan to address problem: Patient to follow-up with Dr. 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 correction insulin use status (6) Morbid obesity Status: Chronic (7) DVT prophylaxis Status: Acute Core Measure Documentation - Palliative Care Palliative Care/ Comfort Measures: Not Applicable - Core Measures Any of the following diagnoses?: none Exam - Constitutional Vitals: Temp Pulse Resp BP Pulse Ox 98.0 F 91 H 18 128/69 92 05/29/20 16:37 05/29/20 16:37 05/29/20 16:37 05/29/20 16:37 05/29/20 16:37 General appearance: Present: no acute distress, well-nourished - EENT Eyes: Present: PERRL ENT: hearing intact, clear oral mucosa - Neck Neck: Present: supple, normal ROM - Respiratory Respiratory effort: normal Respiratory: bilateral: CTA - Cardiovascular Heart rate: 78 Rhythm: regular Heart Sounds: Present: S1 & S2. Absent: rub, click - Extremities Extremities: pulses symmetrical, No edema Peripheral Pulses: within normal limits - Abdominal General gastrointestinal: Present: soft, non-tender, non-distended, normal bowel sounds Male genitourinary: Present: normal - Integumentary Integumentary: Present: clear, warm, dry - Musculoskeletal Musculoskeletal: gait normal, strength equal bilaterally - Psychiatric Psychiatric: appropriate mood/affect, intact judgment & insight - Neurologic Neurologic: CNII-XII intact, focal deficits (Right facial paralysis), moves all extremities - Allied Health Allied health notes reviewed: case management Plan Activity: no restrictions Diet: low salt Follow up with: PRIMARY CARE, [Primary Care Provider] - 7 Days Forms: Discharge Signature Page Prescriptions: Glimepiride [Amaryl] 4 mg PO QDDIAB #30 tablet amLODIPine 10 mg PO DAILY 30 Days #30 tablet Docusate Sodium [Colace CAP] 100 mg PO DAILY #30 capsule Colchicine [Colcrys] 0.6 mg PO QDAY #30 tablet predniSONE [Deltasone] 20 mg PO DAILY #8 tablet Torsemide [Demadex] 20 mg PO BID@0600,1800 #60 tablet Valsartan [Diovan] 160 mg PO BID 30 Days #60 tablet Aspirin [Durlaza] 162.5 mg PO QDAY #100 cap.er.24h Ferrous Sulfate [Feosol 325 MG tab] 325 mg PO DAILY #30 Gabapentin 300 mg PO BID #60 capsule Potassium Chloride [K-Dur] 20 meq PO BID 30 Days #60 tab labetaloL [Labetalol 200mg TAB] 200 mg PO BID #60 tablet AtorvaSTATin [Lipitor] 40 mg PO DAILY #30 tablet Proventil 0.083% NEBS 90 mcg INHALATION Q4HR PRN #1 PRN Reason: Wheezing Tizanidine HCl [Zanaflex 2mg CAP] 2 mg PO TID #15 cap tiZANidine [Zanaflex 4mg TAB] 2 mg PO TID #30 tablet
== END 2020-05-29 18:18 | disposition home or self-care (01) | DRG 69 ==
LOC: ED 11:41 → 4A 13:47 → OBSVTOIN 05-29 11:50
PROVIDERS: ADMIT Internal Medicine; ATTEND Internal Medicine
PROC: 5A09357 Assistance with Respiratory Ventilation, Less than 24 Consecutive Hours, Continuous Positive Airway Pressure (ICD-10-PCS; principal; 2020-05-28)
DX: G45.9 Transient cerebral ischemic attack, unspecified (principal); E11.9 Type 2 diabetes mellitus without complications; M10.9 Gout, unspecified; I10 Essential (primary) hypertension; E78.5 Hyperlipidemia, unspecified; K21.9 Gastro-esophageal reflux disease without esophagitis; J45.909 Unspecified asthma, uncomplicated; E66.01 Morbid (severe) obesity due to excess calories; G47.30 Sleep apnea, unspecified; G51.0 Bell's palsy; Z90.49 Acquired absence of other specified parts of digestive tract; Z79.899 Other long term (current) drug therapy; Z79.84 Long term (current) use of oral hypoglycemic drugs; Z79.52 Long term (current) use of systemic steroids
CPT/HCPCS: 36415; 70450; 71045; 80048; 80053; 82962; 83036; 83880; 84484; 85025; 85610; 85670; 85730; 93005; 94660; 96361; 96374; 96375; G0378; A9270-GY; J1100; J1644; J7030; J7512

== ENCOUNTER 2021-04-17 14:29 | Emergency (ER) | payer MEDICAID ==
[2021-04-17 14:35] VITALS: BP 179/68
--- NOTE | 2021-04-17 14:36 | Emergency Department Report ---
ED Shortness of Breath HPI - General Chief Complaint: Dyspnea/Respdistress Stated Complaint: SOB Time Seen by Provider: 04/17/21 14:34 - History of Present Illness Initial Comments: Patient presents by ambulance secondary shortness of breath and swelling in the neck. He states that the right side of his neck has been swollen and that is causing him difficulty breathing. This started over the last several days. There is no trauma. Has no fevers or chills but there is no cough or congestion. He states that he has been having problems with his right arm and right shoulder for several months. He is not sure if the swelling is related to that. He points to the supraclavicular area as being swollen. - Related Data Home Medications Medication Instructions Recorded Confirmed Last Taken Albuterol Mdi (or & Nicu Only) 1 puff INHALATION PRN PRN 03/23/15 05/27/20 06/05/15 [ProAir HFA Inhaler] Famotidine [Pepcid] 20 mg PO DAILY 03/23/15 05/27/20 1 Day Ago ~05/26/20 Ascorbic Acid [Vitamin C] 1,000 mg PO QDAY 05/27/20 05/28/20 1 Day Ago ~05/26/20 Previous Rx's Medication Instructions Recorded Last Taken Type Aspirin [Durlaza] 162.5 mg PO QDAY #100 cap.er.24h 05/29/20 Unknown Rx AtorvaSTATin [Lipitor] 40 mg PO DAILY #30 tablet 05/29/20 Unknown Rx Colchicine [Colcrys] 0.6 mg PO QDAY #30 tablet 05/29/20 Unknown Rx Docusate Sodium [Colace CAP] 100 mg PO DAILY #30 capsule 05/29/20 Unknown Rx Ferrous Sulfate [Feosol 325 MG tab] 325 mg PO DAILY #30 05/29/20 Unknown Rx Gabapentin 300 mg PO BID #60 capsule 05/29/20 Unknown Rx Glimepiride [Amaryl] 4 mg PO QDDIAB #30 tablet 05/29/20 Unknown Rx Potassium Chloride [K-Dur] 20 meq PO BID 30 Days #60 tab 05/29/20 Unknown Rx Proventil 0.083% NEBS 90 mcg INHALATION Q4HR PRN #1 05/29/20 Unknown Rx Tizanidine HCl [Zanaflex 2mg CAP] 2 mg PO TID #15 cap 05/29/20 Unknown Rx Torsemide [Demadex] 20 mg PO BID@0600,1800 #60 tablet 05/29/20 Unknown Rx Valsartan [Diovan] 160 mg PO BID 30 Days #60 tablet 05/29/20 Unknown Rx amLODIPine 10 mg PO DAILY 30 Days #30 tablet 05/29/20 Unknown Rx labetaloL [Labetalol 200mg TAB] 200 mg PO BID #60 tablet 05/29/20 Unknown Rx predniSONE [Deltasone] 20 mg PO DAILY #8 tablet 05/29/20 Unknown Rx tiZANidine [Zanaflex 4mg TAB] 2 mg PO TID #30 tablet 05/29/20 Unknown Rx Ibuprofen [Motrin] 600 mg PO Q8H #21 tablet 04/17/21 Unknown Rx Allergies Allergy/AdvReac Type Severity Reaction Status Date / Time No Known Allergies Allergy Verified 07/30/14 13:04 ED Review of Systems ROS: Stated complaint: SOB Other details as noted in HPI Comment: All other systems reviewed and negative Constitutional: denies: fever Eyes: denies: eye pain ENT: denies: throat pain Respiratory: denies: cough Cardiovascular: denies: chest pain Endocrine: denies: unexplained weight loss Gastrointestinal: denies: abdominal pain Genitourinary: denies: dysuria Musculoskeletal: denies: back pain Skin: denies: rash Neurological: denies: headache Hematological/Lymphatic: denies: easy bruising ED Past Medical Hx - Past Medical History Hx Hypertension: Yes Hx Diabetes: Yes Hx GERD: Yes Hx Asthma: Yes - Surgical History Hx Cholecystectomy: Yes - Family History Family history: hypertension - Social History Smoking Status: Never Smoker - Medications Home Medications: Home Medications Medication Instructions Recorded Confirmed Last Taken Type Albuterol Mdi (or & Nicu Only) 1 puff INHALATION PRN PRN 03/23/15 05/27/20 06/05/15 History [ProAir HFA Inhaler] Famotidine [Pepcid] 20 mg PO DAILY 03/23/15 05/27/20 1 Day Ago History ~05/26/20 Ascorbic Acid [Vitamin C] 1,000 mg PO QDAY 05/27/20 05/28/20 1 Day Ago History ~05/26/20 Aspirin [Durlaza] 162.5 mg PO QDAY #100 cap.er.24h 05/29/20 Unknown Rx AtorvaSTATin [Lipitor] 40 mg PO DAILY #30 tablet 05/29/20 Unknown Rx Colchicine [Colcrys] 0.6 mg PO QDAY #30 tablet 05/29/20 Unknown Rx Docusate Sodium [Colace CAP] 100 mg PO DAILY #30 capsule 05/29/20 Unknown Rx Ferrous Sulfate [Feosol 325 MG tab] 325 mg PO DAILY #30 05/29/20 Unknown Rx Gabapentin 300 mg PO BID #60 capsule 05/29/20 Unknown Rx Glimepiride [Amaryl] 4 mg PO QDDIAB #30 tablet 05/29/20 Unknown Rx Potassium Chloride [K-Dur] 20 meq PO BID 30 Days #60 tab 05/29/20 Unknown Rx Proventil 0.083% NEBS 90 mcg INHALATION Q4HR PRN #1 05/29/20 Unknown Rx Tizanidine HCl [Zanaflex 2mg CAP] 2 mg PO TID #15 cap 05/29/20 Unknown Rx Torsemide [Demadex] 20 mg PO BID@0600,1800 #60 tablet 05/29/20 Unknown Rx Valsartan [Diovan] 160 mg PO BID 30 Days #60 tablet 05/29/20 Unknown Rx amLODIPine 10 mg PO DAILY 30 Days #30 tablet 05/29/20 Unknown Rx labetaloL [Labetalol 200mg TAB] 200 mg PO BID #60 tablet 05/29/20 Unknown Rx predniSONE [Deltasone] 20 mg PO DAILY #8 tablet 05/29/20 Unknown Rx tiZANidine [Zanaflex 4mg TAB] 2 mg PO TID #30 tablet 05/29/20 Unknown Rx Ibuprofen [Motrin] 600 mg PO Q8H #21 tablet 04/17/21 Unknown Rx ED Physical Exam - General Limitations: No Limitations, Other (Pulse ox noted and normal) General appearance: alert, in no apparent distress, obese - Head Head exam: Present: atraumatic, normocephalic - Eye Eye exam: Present: normal appearance, EOMI - ENT ENT exam: Present: normal orophraynx, normal external ear exam - Neck Neck exam: Present: normal inspection, other (I do not appreciate right-sided swelling versus left-sided swelling in the supraclavicular or sternocleidomast oid areas.). Absent: tenderness, meningismus - Respiratory Respiratory exam: Present: normal lung sounds bilaterally. Absent: respiratory distress - Cardiovascular Cardiovascular Exam: Present: regular rate, normal rhythm - GI/Abdominal GI/Abdominal exam: Present: soft - Extremities Exam Extremities exam: Present: normal capillary refill. Absent: pedal edema - Back Exam Back exam: Present: full ROM - Neurological Exam Neurological exam: Present: alert, oriented X3, normal gait. Absent: motor sensory deficit - Psychiatric Psychiatric exam: Present: normal affect, normal mood - Skin Skin exam: Present: warm, dry ED Course Vital Signs 04/17/21 14:32 Temperature 98 F Pulse Rate 80 Respiratory 16 Rate Blood Pressure 179/68 [Left] O2 Sat by Pulse 97 Oximetry - Reevaluation(s) Reevaluation #1: 04/17/21 17:20 Patient was discharged ED Medical Decision Making - Medical Decision Making Patient presents with reports of swelling in the right lateral neck causing dyspnea. Patient is not dyspneic. He is not hypoxic. He is not tachypneic. There is no stridor. He has normal phonation. There is no noticeable swelling when compared to the left side. There is no supraclavicular fullness, crepitus, or lymphadenopathy. Patient was instructed to ice the area that he feels is swollen and follow-up with his regular physician. Critical Care Time: No Critical care attestation.: If time is entered above; I have spent that time in minutes in the direct care of this critically ill patient, excluding procedure time. ED Disposition Clinical Impression: Shortness of breath, Neck swelling Disposition: HOME / SELF CARE / HOMELESS Is pt being admited?: No Condition: Stable Instructions: Shortness of Breath, Adult, [id number] Additional Instructions: Apply ice for swelling. Drink plenty of water. Continue home medications. Follow-up with your regular doctor or the referral physician for recheck. Prescriptions: Ibuprofen [Motrin] 600 mg PO Q8H #21 tablet Referrals: CRISS ACOSTA MD [Primary Care Provider] - 3-5 Days MAYCO FALCON MD [Staff Physician] - 3-5 Days
== END 2021-04-17 14:40 | disposition home or self-care (01) ==
LOC: ED 14:29
DX: R06.02 Shortness of breath (principal); R22.1 Localized swelling, mass and lump, neck; I10 Essential (primary) hypertension; E11.8 Type 2 diabetes mellitus with unspecified complications; J45.909 Unspecified asthma, uncomplicated; Z90.49 Acquired absence of other specified parts of digestive tract
CPT/HCPCS: 99283

== ENCOUNTER 2021-06-08 11:24 | Emergency (ER) | payer MEDICAID ==
[2021-06-08 18:29] LABS: Basophils # (Auto) 0.1 K/mm3 (0.0-0.1); Basophils % (Auto) 0.7 % (0.0-1.8); Eosinophils # (Auto) 0.1 K/mm3 (0.0-0.4); Eosinophils % (Auto) 1.2 % (0.0-4.3); Lymphocytes # (Auto) 2.1 K/mm3 (1.2-5.4); Lymphocytes % (Auto) 23.8 % (13.4-35.0); Monocytes % (Auto) 10.9 % (0.0-7.3)
[2021-06-08 18:36] LABS: Hematocrit 36.8 % (35.5-45.6); Hemoglobin 11.6 gm/dl (11.8-15.2); INR 0.83 (0.87-1.13); Mean Corpuscular HGB Conc 32 % (32-34); Mean Corpuscular Volume 82 fl (84-94); Platelet Count 366 K/mm3 (140-440); Red Blood Count 4.47 M/mm3 (3.65-5.03); Red Cell Distribution Width 15.4 % (13.2-15.2)
[2021-06-08 18:37] LABS: Partial Thromboplastin Time 27.5 Sec. (24.2-36.6)
--- NOTE | 2021-06-08 18:47 | XRay Report ---
CHEST 2 VIEWS INDICATION: left sided pleuritic pain. COMPARISON: 05/27/2020 FINDINGS: SUPPORT DEVICES: None. HEART: Within normal limits. LUNGS/PLEURA: No acute air space or interstitial disease. No pneumothorax. ADDITIONAL FINDINGS: None. IMPRESSION: 1. No acute findings. Signer Name: Noel Nolen MD Signed: 06/08/2021 6:43 PM Workstation Name: [id number]
[2021-06-08 18:51] LABS: Alanine Aminotransferase 21 units/L (7-56); BUN/Creatinine Ratio 14; Blood Urea Nitrogen 15 mg/dL (9-20); Calcium 9.5 mg/dL (8.4-10.2); Hemolysis Index 7
[2021-06-08] MEDS ORDERED: diphenhydrAMINE 50 MG/ML VIAL IV ONE (19:09)
[2021-06-08] MEDS ORDERED: predniSONE 50 MG TAB PO ONE (19:09)
[2021-06-08] MEDS ORDERED: oxyCODONE /ACETAMINOPHEN 5-325MG TAB PO ONE (19:09)
--- NOTE | 2021-06-08 20:34 | Emergency Department Report ---
ED General Adult HPI - General Chief complaint: Abdominal Pain Stated complaint: LEFT FLANK PAIN Time Seen by Provider: 06/08/21 17:54 Source: EMS Mode of arrival: Stretcher Limitations: No Limitations - History of Present Illness Initial comments: Patient is a 51-year-old male presents emergency room complaints of left flank pain that began yesterday. He denies any fall or injury. He has associated shortness of breath and pain when he takes a deep breath. He denies any fever, nausea, vomiting, diarrhea, urinary symptoms, cough, hematuria, dysuria, abdominal pain. Patient has a past medical history of CVA, Jackson's Palsy, HTN, DM, gout, dyslipidemia. he reports that IV dye makes him itch, but no history of angioedema or anaphylaxis Severity scale (0 -10): 8 - Related Data Home Medications Medication Instructions Recorded Confirmed Last Taken Albuterol Mdi (or & Nicu Only) 1 puff INHALATION PRN PRN 03/23/15 05/27/20 06/05/15 [ProAir HFA Inhaler] Famotidine [Pepcid] 20 mg PO DAILY 03/23/15 05/27/20 1 Day Ago ~05/26/20 Ascorbic Acid [Vitamin C] 1,000 mg PO QDAY 05/27/20 05/28/20 1 Day Ago ~05/26/20 Previous Rx's Medication Instructions Recorded Last Taken Type Aspirin [Durlaza] 162.5 mg PO QDAY #100 cap.er.24h 05/29/20 Unknown Rx AtorvaSTATin [Lipitor] 40 mg PO DAILY #30 tablet 05/29/20 Unknown Rx Colchicine [Colcrys] 0.6 mg PO QDAY #30 tablet 05/29/20 Unknown Rx Docusate Sodium [Colace CAP] 100 mg PO DAILY #30 capsule 05/29/20 Unknown Rx Ferrous Sulfate [Feosol 325 MG tab] 325 mg PO DAILY #30 05/29/20 Unknown Rx Gabapentin 300 mg PO BID #60 capsule 05/29/20 Unknown Rx Glimepiride [Amaryl] 4 mg PO QDDIAB #30 tablet 05/29/20 Unknown Rx Potassium Chloride [K-Dur] 20 meq PO BID 30 Days #60 tab 05/29/20 Unknown Rx Proventil 0.083% NEBS 90 mcg INHALATION Q4HR PRN #1 05/29/20 Unknown Rx Tizanidine HCl [Zanaflex 2mg CAP] 2 mg PO TID #15 cap 05/29/20 Unknown Rx Torsemide [Demadex] 20 mg PO BID@0600,1800 #60 tablet 05/29/20 Unknown Rx Valsartan [Diovan] 160 mg PO BID 30 Days #60 tablet 05/29/20 Unknown Rx amLODIPine 10 mg PO DAILY 30 Days #30 tablet 05/29/20 Unknown Rx labetaloL [Labetalol 200mg TAB] 200 mg PO BID #60 tablet 05/29/20 Unknown Rx predniSONE [Deltasone] 20 mg PO DAILY #8 tablet 05/29/20 Unknown Rx tiZANidine [Zanaflex 4mg TAB] 2 mg PO TID #30 tablet 05/29/20 Unknown Rx Ibuprofen [Motrin] 600 mg PO Q8H #21 tablet 04/17/21 Unknown Rx Naproxen 375 mg PO BID PRN #14 tab 06/08/21 Unknown Rx methOCARBAMOL [Robaxin TAB] 500 mg PO BID PRN #14 tab 06/08/21 Unknown Rx Allergies Allergy/AdvReac Type Severity Reaction Status Date / Time No Known Allergies Allergy Verified 06/08/21 11:29 ED Review of Systems ROS: Stated complaint: LEFT FLANK PAIN Other details as noted in HPI Comment: All other systems reviewed and negative ED Past Medical Hx - Past Medical History Hx Hypertension: Yes Hx Diabetes: Yes Hx GERD: Yes Hx Asthma: Yes - Surgical History Hx Cholecystectomy: Yes - Social History Smoking Status: Never Smoker - Medications Home Medications: Home Medications Medication Instructions Recorded Confirmed Last Taken Type Albuterol Mdi (or & Nicu Only) 1 puff INHALATION PRN PRN 03/23/15 05/27/20 06/05/15 History [ProAir HFA Inhaler] Famotidine [Pepcid] 20 mg PO DAILY 03/23/15 05/27/20 1 Day Ago History ~05/26/20 Ascorbic Acid [Vitamin C] 1,000 mg PO QDAY 05/27/20 05/28/20 1 Day Ago History ~05/26/20 Aspirin [Durlaza] 162.5 mg PO QDAY #100 cap.er.24h 05/29/20 Unknown Rx AtorvaSTATin [Lipitor] 40 mg PO DAILY #30 tablet 05/29/20 Unknown Rx Colchicine [Colcrys] 0.6 mg PO QDAY #30 tablet 05/29/20 Unknown Rx Docusate Sodium [Colace CAP] 100 mg PO DAILY #30 capsule 05/29/20 Unknown Rx Ferrous Sulfate [Feosol 325 MG tab] 325 mg PO DAILY #30 05/29/20 Unknown Rx Gabapentin 300 mg PO BID #60 capsule 05/29/20 Unknown Rx Glimepiride [Amaryl] 4 mg PO QDDIAB #30 tablet 05/29/20 Unknown Rx Potassium Chloride [K-Dur] 20 meq PO BID 30 Days #60 tab 05/29/20 Unknown Rx Proventil 0.083% NEBS 90 mcg INHALATION Q4HR PRN #1 05/29/20 Unknown Rx Tizanidine HCl [Zanaflex 2mg CAP] 2 mg PO TID #15 cap 05/29/20 Unknown Rx Torsemide [Demadex] 20 mg PO BID@0600,1800 #60 tablet 05/29/20 Unknown Rx Valsartan [Diovan] 160 mg PO BID 30 Days #60 tablet 05/29/20 Unknown Rx amLODIPine 10 mg PO DAILY 30 Days #30 tablet 05/29/20 Unknown Rx labetaloL [Labetalol 200mg TAB] 200 mg PO BID #60 tablet 05/29/20 Unknown Rx predniSONE [Deltasone] 20 mg PO DAILY #8 tablet 05/29/20 Unknown Rx tiZANidine [Zanaflex 4mg TAB] 2 mg PO TID #30 tablet 05/29/20 Unknown Rx Ibuprofen [Motrin] 600 mg PO Q8H #21 tablet 04/17/21 Unknown Rx Naproxen 375 mg PO BID PRN #14 tab 06/08/21 Unknown Rx methOCARBAMOL [Robaxin TAB] 500 mg PO BID PRN #14 tab 06/08/21 Unknown Rx ED Physical Exam - General Limitations: No Limitations General appearance: alert, in no apparent distress - Head Head exam: Present: atraumatic, normocephalic - Eye Eye exam: Present: normal appearance - ENT ENT exam: Present: mucous membranes moist - Respiratory Respiratory exam: Present: normal lung sounds bilaterally. Absent: respiratory distress, wheezes, rales, rhonchi, stridor, chest wall tenderness, accessory muscle use, decreased breath sounds, prolonged expiratory - Cardiovascular Cardiovascular Exam: Present: regular rate, normal rhythm, normal heart sounds. Absent: systolic murmur, diastolic murmur, rubs, gallop - GI/Abdominal GI/Abdominal exam: Present: soft, normal bowel sounds. Absent: distended, tenderness, guarding, rebound, rigid - Back Exam Back exam: Present: normal inspection, full ROM. Absent: CVA tenderness (R), CVA tenderness (L), paraspinal tenderness, vertebral tenderness - Neurological Exam Neurological exam: Present: alert, oriented X3 - Psychiatric Psychiatric exam: Present: normal affect, normal mood - Skin Skin exam: Present: warm, dry, intact ED Course Vital Signs 06/08/21 11:26 Temperature 98.5 F Pulse Rate 82 Respiratory 20 Rate Blood Pressure 117/69 [Left] O2 Sat by Pulse 98 Oximetry - Consultations Consultation #1: 06/08/21 20:[address] regarding that pt was pretreated they advised will come get him for CTA and CT without ED Medical Decision Making - Lab Data Result diagrams: 06/08/21 18:17 06/08/21 18:17 Lab Results 06/08/21 06/08/21 06/08/21 Range/Units 18:17 18:17 18:17 WBC 8.7 (4.5-11.0) K/mm3 RBC 4.47 (3.65-5.03) M/mm3 Hgb 11.6 L (11.8-15.2) gm/dl Hct 36.8 (35.5-45.6) % MCV 82 L (84-94) fl MCH 26 L (28-32) pg MCHC 32 (32-34) % RDW 15.4 H (13.2-15.2) % Plt Count 366 (140-440) K/mm3 Lymph % (Auto) 23.8 (13.4-35.0) % [place] % (Auto) 10.9 H (0.0-7.3) % Eos % (Auto) 1.2 (0.0-4.3) % Baso % (Auto) 0.7 (0.0-1.8) % Lymph # (Auto) 2.1 (1.2-5.4) K/mm3 [place] # (Auto) 1.0 H (0.0-0.8) K/mm3 Eos # (Auto) 0.1 (0.0-0.4) K/mm3 Baso # (Auto) 0.1 (0.0-0.1) K/mm3 Seg Neutrophils % 63.4 (40.0-70.0) % Seg Neutrophils # 5.5 (1.8-7.7) K/mm3 PT 12.3 (12.2-14.9) Sec. INR 0.83 L (0.87-1.13) APTT 27.5 (24.2-36.6) Sec. D-Dimer 487.56 H (0-234) ng/mlDDU Sodium 140 (137-145) mmol/L Potassium 4.1 (3.6-5.0) mmol/L Chloride 105.9 (98-107) mmol/L Carbon Dioxide 20 L (22-30) mmol/L Anion Gap 18 mmol/L BUN 15 (9-20) mg/dL Creatinine 1.1 (0.8-1.3) mg/dL Estimated GFR > 60 ml/min BUN/Creatinine Ratio 14 % Glucose 95 (75-100) mg/dL Calcium 9.5 (8.4-10.2) mg/dL Total Bilirubin 0.70 (0.1-1.2) mg/dL AST 15 (5-40) units/L ALT 21 (7-56) units/L Alkaline Phosphatase 96 (35-129) units/L Troponin T < 0.010 (0.00-0.029) ng/mL NT-Pro-B Natriuret Pep 45.98 (0-900) pg/mL Total Protein 8.3 H (6.3-8.2) g/dL Albumin 4.0 (3.9-5) g/dL Albumin/Globulin Ratio 0.9 % Lipase (13-60) units/L Urine Color (Yellow) Urine Turbidity (Clear) Urine pH (5.0-7.0) Ur Specific [place] (1.003-1.030) Urine Protein (Negative) mg/dL Urine Glucose (UA) (Negative) mg/dL Urine Ketones (Negative) mg/dL Urine Blood (Negative) Urine Nitrite (Negative) Urine Bilirubin (Negative) Urine Urobilinogen (<2.0) mg/dL Ur Leukocyte Esterase (Negative) Urine WBC (Auto) (0.0-6.0) /HPF Urine RBC (Auto) (0.0-6.0) /HPF U Epithel Cells (Auto) (0-13.0) /HPF Urine Mucus /HPF Urine Sperm ([employer]) /HPF 06/08/21 06/08/21 06/08/21 Range/Units 18:17 20:48 Unknown WBC (4.5-11.0) K/mm3 RBC (3.65-5.03) M/mm3 Hgb (11.8-15.2) gm/dl Hct (35.5-45.6) % MCV (84-94) fl MCH (28-32) pg MCHC (32-34) % RDW (13.2-15.2) % Plt Count (140-440) K/mm3 Lymph % (Auto) (13.4-35.0) % [place] % (Auto) (0.0-7.3) % Eos % (Auto) (0.0-4.3) % Baso % (Auto) (0.0-1.8) % Lymph # (Auto) (1.2-5.4) K/mm3 [place] # (Auto) (0.0-0.8) K/mm3 Eos # (Auto) (0.0-0.4) K/mm3 Baso # (Auto) (0.0-0.1) K/mm3 Seg Neutrophils % (40.0-70.0) % Seg Neutrophils # (1.8-7.7) K/mm3 PT (12.2-14.9) Sec. INR (0.87-1.13) APTT (24.2-36.6) Sec. D-Dimer (0-234) ng/mlDDU Sodium (137-145) mmol/L Potassium (3.6-5.0) mmol/L Chloride (98-107) mmol/L Carbon Dioxide (22-30) mmol/L Anion Gap mmol/L BUN (9-20) mg/dL Creatinine (0.8-1.3) mg/dL Estimated GFR ml/min BUN/Creatinine Ratio % Glucose (75-100) mg/dL Calcium (8.4-10.2) mg/dL Total Bilirubin (0.1-1.2) mg/dL AST (5-40) units/L ALT (7-56) units/L Alkaline Phosphatase (35-129) units/L Troponin T < 0.010 (0.00-0.029) ng/mL NT-Pro-B Natriuret Pep (0-900) pg/mL Total Protein (6.3-8.2) g/dL Albumin (3.9-5) g/dL Albumin/Globulin Ratio % Lipase 38 (13-60) units/L Urine Color Yellow (Yellow) Urine Turbidity Clear (Clear) Urine pH 5.0 (5.0-7.0) Ur Specific [place] 1.014 (1.003-1.030) Urine Protein 100 mg/dl (Negative) mg/dL Urine Glucose (UA) Neg (Negative) mg/dL Urine Ketones Neg (Negative) mg/dL Urine Blood Sm (Negative) Urine Nitrite Neg (Negative) Urine Bilirubin Neg (Negative) Urine Urobilinogen < 2.0 (<2.0) mg/dL Ur Leukocyte Esterase Neg (Negative) Urine WBC (Auto) 1.0 (0.0-6.0) /HPF Urine RBC (Auto) 1.0 (0.0-6.0) /HPF U Epithel Cells (Auto) 2.0 (0-13.0) /HPF Urine Mucus 1+ /HPF Urine Sperm 1+ ([employer]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 COMPARISON: 05/27/2020 FINDINGS: SUPPORT DEVICES: None. HEART: Within normal limits. LUNGS/PLEURA: No acute air space or interstitial disease. No pneumothorax. ADDITIONAL FINDINGS: None. IMPRESSION: 1. No acute findings. Signer Name: Noel Nolen MD Signed: 06/08/2021 6:43 PM Workstation Name: [id number] Transcribed By: ELIZABETH Dictated By: Noel Nolen MD Electronically Authenticated By: Noel Nolen MD Signed Date/Time: 06/08/211842 DD/ 41 TD/TT: Ordering Physician: CARMELITA BERNSTEIN Date of Service: 06/08/21 Procedure(s): CT angio chest Accession Number(s): [id number] cc: CARMELITA BERNSTEIN CTA CHEST WITH CONTRAST INDICATION / CLINICAL INFORMATION: Pleuritic chest pain and elevated D-dimer. TECHNIQUE: Axial CT images were obtained through the chest after injection of 100 cc Omnipaque 350 IV contrast. 3 plane MIP and/or 3D reconstructions were produced. All CT scans at this location are performed using CT dose reduction for ALARA by means of automated exposure control. COMPARISON: None available. FINDINGS: PULMONARY EMBOLUS: Adequate opacification of the pulmonary arterial system bilaterally without intraluminal filling defect to suggest acute PTE. THORACIC AORTA: No significant abnormality. HEART: No significant abnormality. CORONARY ARTERY CALCIFICATION: Absent -- None. MEDIASTINUM / JOSH: No significant abnormality. PLEURA: No pleural effusion. No pneumothorax. LUNGS: No acute air space or interstitial disease. ADDITIONAL FINDINGS: None. UPPER ABDOMEN: The gallbladder is surgically absent. There is mild diffuse fatty infiltration of the liver. SKELETAL STRUCTURES: No significant osseous abnormality. IMPRESSION: 1. No CT evidence for pulmonary embolism. 2. No acute findings. Signer Name: Blaze Flowers MD Signed: 06/08/2021 10:49 PM Workstation Name: [id number] Transcribed By: RT Dictated By: Blaze Flowers MD Electronically Authenticated By: Blaze Flowers MD Signed Date/Time: 06/08/212248 DD/ 45 TD/TT: Ordering Physician: CARMELITA BERNSTEIN Date of Service: 06/08/21 Procedure(s): CT abdomen pelvis w con Accession Number(s): [id number] cc: CARMELITA BERNSTEIN CT ABDOMEN AND PELVIS WITH INTRAVENOUS CONTRAST INDICATION / CLINICAL INFORMATION: Left flank pain and pleuritic chest pain. TECHNIQUE: 100 cc Omnipaque [address] scans at this location are performed using CT dose reduction for ALARA by means of automated exposure control. COMPARISON: None available. FINDINGS: ABDOMEN: The gallbladder is surgically absent. The liver measures 18 cm in length and demonstrates mild generalized decreased density compared to the spleen without focal lesion. 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 There are bilateral simple renal cysts, the largest of which measures 2.6 cm in the right mid to lower kidney anteriorly. There is no evidence of urinary tract calculus or hydronephrosis. The bile ducts, pancreas, spleen, adrenal glands and bowel demonstrate no significant abnormality. There is no evidence of adenopathy. No vascular abnormality is present. PELVIS: The distal ureters and urinary bladder are normal. The prostate gland is mildly enlarged. The seminal vesicles are normal in appearance. Minimal bilateral vas deferens calcifications can be seen with diabetes. The cecum is located in the right mid abdomen anteriorly. A normal appendix is present. There is no evidence of diverticulitis. No abnormal mass or fluid collection is present. I do not identify a hernia. No acute osseous abnormality is seen. IMPRESSION: 1. No acute abnormality is identified. 2. Mild hepatomegaly with evidence of mild diffuse fatty infiltration. Signer Name: Blaze Flowers MD Signed: 06/08/2021 10:56 PM Workstation Name: [id number] Transcribed By: RT Dictated By: Blaze Flowers MD Electronically Authenticated By: Blaze Flowers MD Signed Date/Time: 06/08/212255 DD/ 51 TD/TT: - Medical Decision Making Patient is a 51-year-old male presents emergency room complaints of left flank pain that began yesterday. He denies any fall or injury. He has associated shortness of breath and pain when he takes a deep breath. He denies any fever, nausea, vomiting, diarrhea, urinary symptoms, cough, hematuria, dysuria, abdominal pain. Patient has a past medical history of CVA, Jackson's Palsy, HTN, DM, gout, dyslipidemia. he reports that IV dye makes him itch, but no history of angioedema or anaphylaxis. Vitals are normal. Patient has no abdominal tenderness, no CVA tenderness, no spinal or paraspinal tenderness on exam. EKG is within normal limits. Labs with elevated D-dimer, otherwise stable. Troponin is negative x2. UA without evidence of UTI or red blood cells. Chest x-ray 1. No acute findings. CT angio chest 1. No CT evidence for pulmonary embolism. 2. No acute findings. CT abdomen pelvis 1. No acute abnormality is identified. 2. Mild hepatomegaly with evidence of mild diffuse fatty infiltration. Discussed all findings with patient. Patient given medication in the emergency department with improvement of symptoms. Advised patient Please take medication as prescribed as needed. Follow-up with your primary care doctor for reexamination. Return to emergency room for any new or worsening symptoms. Critical care attestation.: If time is entered above; I have spent that time in minutes in the direct care of this critically ill patient, excluding procedure time. ED Disposition Clinical Impression: Left flank pain, Hepatic steatosis Disposition: HOME / SELF CARE / HOMELESS Is pt being admited?: No Does the pt Need Aspirin: No Condition: Stable Instructions: Flank Pain, Adult, [id number] Additional Instructions: Please take medication as prescribed as needed. Follow-up with your primary care doctor for reexamination. Return to emergency room for any new or worsening symptoms. Prescriptions: Naproxen 375 mg PO BID PRN #14 tab PRN Reason: pain methOCARBAMOL [Robaxin TAB] 500 mg PO BID PRN #14 tab PRN Reason: muscle spasm/pain Referrals: PRIMARY CARE, [Primary Care Provider] - 3-5 Days Time of Disposition: 23:19 Print Language: ZAMBIAN
[2021-06-08 21:18] LABS: Bilirubin,Urine NEG (Negative); Blood,Urine SM (Negative); Color,Urine Yellow (Yellow); Mucus,Urine 1+ /HPF; Sperm,Urine 1+ /HPF (NP); Urobilinogen,Urine < 2.0 mg/dL (<2.0)
--- NOTE | 2021-06-08 22:53 | Cat Scan Report ---
CTA CHEST WITH CONTRAST INDICATION / CLINICAL INFORMATION: Pleuritic chest pain and elevated D-dimer. TECHNIQUE: Axial CT images were obtained through the chest after injection of 100 cc Omnipaque 350 IV contrast. 3 plane MIP and/or 3D reconstructions were produced. All CT scans at this location are per formed using CT dose reduction for ALARA by means of automated exposure control. COMPARISON: None available. FINDINGS: PULMONARY EMBOLUS: Adequate opacification of the pulmonary arterial system bilaterally without intral uminal filling defect to suggest acute PTE. THORACIC AORTA: No significant abnormality. HEART: No significant abnormality. CORONARY ARTERY CALCIFICATION: Absent -- None. MEDIASTINUM / JOSH: No significant abnormality. PLEURA: No pleural effusion. No pneumothorax. LUNGS: No acute air space or interstitial disease. ADDITIONAL FINDINGS: None. UPPER ABDOMEN: The gallbladder is surgically absent. There is mild diffuse fatty infiltration of the liver. SKELETAL STRUCTURES: No significant osseous abnormality. IMPRESSION: 1. No CT evidence for pulmonary embolism. 2. No acute findings. Signer Name: Blaze Flowers MD Signed: 06/08/2021 10:49 PM Workstation Name: [id number]
--- NOTE | 2021-06-08 23:01 | Cat Scan Report ---
CT ABDOMEN AND PELVIS WITH INTRAVENOUS CONTRAST INDICATION / CLINICAL INFORMATION: Left flank pain and pleuritic chest pain. TECHNIQUE: 100 cc Omnipaque [address] scans at this location are performed using CT d ose reduction for ALARA by means of automated exposure control. COMPARISON: None available. FINDINGS: ABDOMEN: The gallbladder is surgically absent. The liver measures 18 cm in length and demonstrates mi ld generalized decreased density compared to the spleen without focal lesion. There is mild malrotati on of both kidneys. There are bilateral simple renal cysts, the largest of which measures 2.6 cm in t he right mid to lower kidney anteriorly. There is no evidence of urinary tract calculus or hydronephr osis. The bile ducts, pancreas, spleen, adrenal glands and bowel demonstrate no significant abnormality. Th ere is no evidence of adenopathy. No vascular abnormality is present. PELVIS: The distal ureters and urinary bladder are normal. The prostate gland is mildly enlarged. The seminal vesicles are normal in appearance. Minimal bilateral vas deferens calcifications can be seen with diabetes. The cecum is located in the right mid abdomen anteriorly. A normal appendix is present. There is no e vidence of diverticulitis. No abnormal mass or fluid collection is present. I do not identify a herni a. No acute osseous abnormality is seen. IMPRESSION: 1. No acute abnormality is identified. 2. Mild hepatomegaly with evidence of mild diffuse fatty infiltration. Signer Name: Blaze Flowers MD Signed: 06/08/2021 10:56 PM Workstation Name: [id number]
[2021-06-09 00:50] VITALS: BP 128/76
--- NOTE | 2021-06-09 08:10 | Electrocardiograph Report ---
[facility] Test Date: 2021-06-08 Test Time: 19:18:17 Pat Name: DNANA GRACE Department: Room: Gender: M Policy Analyst: : 1970 Requested By: KALIE SCHWARTZ Order Number: [id number] Reading MD: Thai Muir Measurements Intervals [place] Rate: 89 P: -1 MN: 142 QRS: 37 QRSD: 96 T: 17 QT: 385 QTc: 470 Interpretive Statements Sinus rhythm No previous ECG available for comparison Electronically Signed On 06-09-2021 8:09:45 EDT by Thai Muir
== END 2021-06-08 23:26 | disposition home or self-care (01) ==
LOC: ED 11:24
DX: K83.1 Obstruction of bile duct (principal); I10 Essential (primary) hypertension; E11.9 Type 2 diabetes mellitus without complications; K21.9 Gastro-esophageal reflux disease without esophagitis; J45.909 Unspecified asthma, uncomplicated; Z79.899 Other long term (current) drug therapy; Z79.82 Long term (current) use of aspirin
CPT/HCPCS: 36415; 71046; 71275; 74177; 80053; 81001; 83690; 83880; 84484; 85025; 85379; 85610; 85730; 93005; 96374; 99285; J1200; J7512; Q9967

== ENCOUNTER 2021-08-07 11:00 | Outpatient (CLI) | payer MEDICAID | END 2021-08-07 11:01 | disposition home or self-care (01) | LOC: SLR 11:00 | PROVIDERS: ATTEND Internal Medicine | DX: G47.30 Sleep apnea, unspecified (principal) | CPT/HCPCS: 95810 ==

== ENCOUNTER 2021-08-19 23:31 | Emergency (ER) | payer MEDICAID ==
[2021-08-20] MEDS ORDERED: fentaNYL 100 MCG/2 ML INJ IV ONE (00:08)
[2021-08-20] MEDS ORDERED: ONDANSETRON 4 MG/2 ML INJ IV ONE (00:08)
--- NOTE | 2021-08-20 00:21 | Emergency Department Report ---
HPI - General Chief Complaint: Abdominal Pain Time Seen by Provider: 08/19/21 23:54 - HPI HPI: Room 38 The patient is a 51-year-old male present with a chief complaint of left flank/left upper quadrant pain. Patient states he developed this pain 08/16/2021 and went to the [facility] emergency department where he had a CAT scan of the abdomen pelvis performed, chest x-ray and labs. Patient was diagnosed with urinary tract infection and unspecified chest pain and discharged home. Patient was sent home on ciprofloxacin which she states she is still taking. Patient states that symptoms have improved but this evening at approximate 21: 00 of pain returned. Patient complained of some shortness of breath with this pain but denies cough, pleurisy or fever. Patient denies nausea or vomiting. Patient states he had some hematuria but denies dysuria. ED Past Medical Hx - Past Medical History Previous Medical History?: Yes Hx Hypertension: Yes Hx Congestive Heart Failure: Yes Hx Diabetes: Yes Hx GERD: Yes Hx Asthma: Yes Additional medical history: Obesity. Sleep apnea. High Cholesterol. Gout - Surgical History Past Surgical History?: Yes Hx Cholecystectomy: Yes - Family History Family history: no significant - Social History Smoking Status: Never Smoker Substance Use Type: None (Denies illicit drug use) - Medications Home Medications: Home Medications Medication Instructions Recorded Confirmed Last Taken Type Albuterol Mdi (or & Nicu Only) 1 puff INHALATION PRN PRN 03/23/15 05/27/20 06/05/15 History [ProAir HFA Inhaler] Famotidine [Pepcid] 20 mg PO DAILY 03/23/15 05/27/20 1 Day Ago History ~05/26/20 Ascorbic Acid [Vitamin C] 1,000 mg PO QDAY 05/27/20 05/28/20 1 Day Ago History ~05/26/20 Aspirin [Durlaza] 162.5 mg PO QDAY #100 cap.er.24h 05/29/20 Unknown Rx AtorvaSTATin [Lipitor] 40 mg PO DAILY #30 tablet 05/29/20 Unknown Rx Colchicine [Colcrys] 0.6 mg PO QDAY #30 tablet 05/29/20 Unknown Rx Docusate Sodium [Colace CAP] 100 mg PO DAILY #30 capsule 05/29/20 Unknown Rx Ferrous Sulfate [Feosol 325 MG tab] 325 mg PO DAILY #30 05/29/20 Unknown Rx Gabapentin 300 mg PO BID #60 capsule 05/29/20 Unknown Rx Glimepiride [Amaryl] 4 mg PO QDDIAB #30 tablet 05/29/20 Unknown Rx Potassium Chloride [K-Dur] 20 meq PO BID 30 Days #60 tab 05/29/20 Unknown Rx Proventil 0.083% NEBS 90 mcg INHALATION Q4HR PRN #1 05/29/20 Unknown Rx Tizanidine HCl [Zanaflex 2mg CAP] 2 mg PO TID #15 cap 05/29/20 Unknown Rx Torsemide [Demadex] 20 mg PO BID@0600,1800 #60 tablet 05/29/20 Unknown Rx Valsartan [Diovan] 160 mg PO BID 30 Days #60 tablet 05/29/20 Unknown Rx amLODIPine 10 mg PO DAILY 30 Days #30 tablet 05/29/20 Unknown Rx labetaloL [Labetalol 200mg TAB] 200 mg PO BID #60 tablet 05/29/20 Unknown Rx predniSONE [Deltasone] 20 mg PO DAILY #8 tablet 05/29/20 Unknown Rx tiZANidine [Zanaflex 4mg TAB] 2 mg PO TID #30 tablet 05/29/20 Unknown Rx Ibuprofen [Motrin] 600 mg PO Q8H #21 tablet 04/17/21 Unknown Rx Naproxen 375 mg PO BID PRN #14 tab 06/08/21 Unknown Rx methOCARBAMOL [Robaxin TAB] 500 mg PO BID PRN #14 tab 06/08/21 Unknown Rx Famotidine [Pepcid] 20 mg PO BID #30 tablet 08/20/21 Unknown Rx HYDROcodone/APAP 5-325 [[place] 1 - 2 each PO Q6HR PRN #14 tablet 08/20/21 Unknown Rx 5/325] ED Review of Systems ROS: Stated complaint: LEFT SIDE FLANK PAIN Other details as noted in HPI Constitutional: denies: fever Eyes: denies: eye pain ENT: denies: throat pain Respiratory: shortness of breath Cardiovascular: chest pain Endocrine: no symptoms reported Gastrointestinal: abdominal pain. denies: nausea, vomiting Genitourinary: hematuria. denies: dysuria Musculoskeletal: denies: back pain Neurological: denies: headache Physical Exam - Physical Exam Vital Signs: Vital Signs 08/19/21 23:47 Temperature 98 F Pulse Rate 86 Respiratory 18 Rate Blood Pressure 152/88 O2 Sat by Pulse 100 Oximetry Physical Exam: GENERAL: The patient is well-developed well-nourished male lying on stretcher not appearing to be in acute distress. [] HEENT: Normocephalic. Atraumatic. Extraocular motions are intact. Patient has moist mucous membranes. NECK: Supple. Trachea midline CHEST/LUNGS: Clear to auscultation. There is no respiratory distress noted. HEART/CARDIOVASCULAR: Regular. There is no tachycardia. There is no gallop rub or murmur. ABDOMEN: Abdomen is soft, nontender. Patient has normal bowel sounds. There is no abdominal distention. SKIN: There is no rash. There is no edema. There is no diaphoresis. NEURO: The patient is awake, alert, and oriented. The patient is cooperative. The patient has no focal neurologic deficits. The patient has normal speech. GCS 15 MUSCULOSKELETAL: There is no CVA tenderness bilaterally. There is no evidence of acute injury. ED Course Vital Signs 08/19/21 23:47 Temperature 98 F Pulse Rate 86 Respiratory 18 Rate Blood Pressure 152/88 O2 Sat by Pulse 100 Oximetry ED Medical Decision Making - Lab Data Result diagrams: 08/20/21 00:06 08/20/21 00:06 - EKG Data -: EKG Interpreted by Ca EKG shows normal: sinus rhythm Rate: normal - EKG Data When compared to previous EKG there are: previous EKG unavailable Interpretation: nonspecific ST-T wave wes (T wave inversion lead III) - Radiology Data Radiology results: report reviewed (CTA chest), image reviewed (CTA chest) [facility] [address] [place] [address] Cat Scan Report Signed Patient: DANNA GRACE MR#: [id number] : 1970 Acct:[id number] Age/Sex: 51 / M ADM Date: 08/19/21 Loc: ED Attending Dr: Ordering Physician: ERNESTINA VARELA MD Date of Service: 08/20/21 Procedure(s): CT angio chest Accession Number(s): [id number] cc: ERNESTINA VARELA MD CTA CHEST WITH CONTRAST INDICATION / CLINICAL INFORMATION: Left chest pain/elevated D-dimer. TECHNIQUE: Axial CT images were obtained through the chest after injection of 100 cc Omni 350 IV contrast. 3 plane MIP and/or 3D reconstructions were produced. All CT scans at this location are performed using CT dose reduction for ALARA by means of automated exposure control. COMPARISON: CTA chest 06/08/2021 FINDINGS: Contrast opacification of pulmonary arteries is fair to poor. Exam also limited by moderate respiratory motion artifact. PULMONARY EMBOLUS: None. No large central pulmonary embolus within the right or left main or lobar pulmonary arteries. Segmental pulmonary arteries poorly opacified THORACIC AORTA: No significant abnormality. HEART: No significant abnormality. CORONARY ARTERY CALCIFICATION: Absent -- None. MEDIASTINUM / JOSH: No significant abnormality. PLEURA: No pleural effusion. No pneumothorax. LUNGS: No acute air space or interstitial disease. ADDITIONAL FINDINGS: None. UPPER ABDOMEN: No acute findings. Right renal cyst, unchanged SKELETAL STRUCTURES: No significant osseous abnormality. IMPRESSION: 1. No CT evidence for large central pulmonary embolism. 2. No acute findings. Signer Name: Lio Sheikh MD Signed: 08/20/2021 4:45 AM Workstation Name: [id number] Transcribed By: TL Dictated By: Lio Sheikh MD Electronically Authenticated By: Lio Sheikh MD Signed Date/Time: 08/20/21444 DD/ 9 TD/TT: - Differential Diagnosis Pyelonephritis, UTI, PE, pleural effusion, CHF Critical care attestation.: If time is entered above; I have spent that time in minutes in the direct care of this critically ill patient, excluding procedure time. ED Disposition Clinical Impression: Chest wall pain, Flank pain Disposition: 01 HOME / SELF CARE / HOMELESS Is pt being admited?: No Does the pt Need Aspirin: No Condition: Stable Instructions: Nonspecific Chest Pain, Adult Additional Instructions: Return to the emergency department should you develop worsening symptoms, inability to tolerate food or liquids, high fever or any other concerns Prescriptions: HYDROcodone/APAP 5-325 [[place] 5/325] 1 - 2 each PO Q6HR PRN #14 tablet PRN Reason: Pain Famotidine [Pepcid] 20 mg PO BID #30 tablet Referrals: PRIMARY CAREMD [Primary Care Provider] - 3-5 Days [facility] [Provider Group] - 3-5 Days Heart Score - HEART Score History: Slightly suspicious EKG: Non-specific Age: 45-65 Risk factors: 1-2 risk factors Troponin: < normal limit HEART Score: 3 - EKG Read Time Time EKG Completed: 05:04 EKG Read Time: 05:08
[2021-08-20 00:53] LABS: Basophils % (Auto) 0.5 % (0.0-1.8); Eosinophils # (Auto) 0.1 K/mm3 (0.0-0.4); Eosinophils % (Auto) 1.9 % (0.0-4.3); Hematocrit 31.9 % (35.5-45.6); Hemoglobin 10.2 gm/dl (11.8-15.2); Lymphocytes # (Auto) 2.2 K/mm3 (1.2-5.4); Lymphocytes % (Auto) 32.4 % (13.4-35.0); Mean Corpuscular HGB Conc 32 % (32-34); Mean Corpuscular Volume 82 fl (84-94); Monocytes # (Auto) 0.6 K/mm3 (0.0-0.8); Monocytes % (Auto) 8.9 % (0.0-7.3); Platelet Count 369 K/mm3 (140-440); Red Blood Count 3.92 M/mm3 (3.65-5.03); Red Cell Distribution Width 16.6 % (13.2-15.2)
[2021-08-20 01:30] LABS: BUN/Creatinine Ratio 12; Blood Urea Nitrogen 17 mg/dL (9-20); Calcium 9.5 mg/dL (8.4-10.2); Hemolysis Index 1
[2021-08-20 01:34] LABS: Creatine Kinase MB 4.2 ng/mL (0.0-4.0)
[2021-08-20 02:37] LABS: Bilirubin,Urine NEG (Negative); Blood,Urine NEG (Negative); Color,Urine Yellow (Yellow); Mucus,Urine FEW /HPF; Urobilinogen,Urine < 2.0 mg/dL (<2.0)
--- NOTE | 2021-08-20 04:49 | Cat Scan Report ---
CTA CHEST WITH CONTRAST INDICATION / CLINICAL INFORMATION: Left chest pain/elevated D-dimer. TECHNIQUE: Axial CT images were obtained through the chest after injection of 100 cc Omni 350 IV cont rast. 3 plane MIP and/or 3D reconstructions were produced. All CT scans at this location are performe d using CT dose reduction for ALARA by means of automated exposure control. COMPARISON: CTA chest 06/08/2021 FINDINGS: Contrast opacification of pulmonary arteries is fair to poor. Exam also limited by moderate respiratory motion artifact. PULMONARY EMBOLUS: None. No large central pulmonary embolus within the right or left main or lobar pu lmonary arteries. Segmental pulmonary arteries poorly opacified THORACIC AORTA: No significant abnormality. HEART: No significant abnormality. CORONARY ARTERY CALCIFICATION: Absent -- None. MEDIASTINUM / JOSH: No significant abnormality. PLEURA: No pleural effusion. No pneumothorax. LUNGS: No acute air space or interstitial disease. ADDITIONAL FINDINGS: None. UPPER ABDOMEN: No acute findings. Right renal cyst, unchanged SKELETAL STRUCTURES: No significant osseous abnormality. IMPRESSION: 1. No CT evidence for large central pulmonary embolism. 2. No acute findings. Signer Name: Lio Sheikh MD Signed: 08/20/2021 4:45 AM Workstation Name: [id number]
[2021-08-20] MEDS ORDERED: HYDROmorphone 1 MG/1 ML INJ IV ONE (05:08)
[2021-08-20 09:48] VITALS: BP 187/97
--- NOTE | 2021-08-20 14:06 | Electrocardiograph Report ---
[facility] Test Date: 2021-08-20 Test Time: 05:04:02 Pat Name: DANNA GRACE Department: Room: Gender: M Laboratory Chief: VANDANA : 1970 Requested By: ERNESTINA VARELA Order Number: [id number] Reading MD: Garret Barreto Measurements Intervals [place] Rate: 86 P: 61 [place]: 161 QRS: 60 QRSD: 95 T: 9 QT: 380 QTc: 454 Interpretive Statements Sinus rhythm Compared to ECG 06/08/2021 19:18:17 No significant changes Electronically Signed On 08-20-2021 14:06:17 EDT by Garret Barreto
== END 2021-08-20 09:52 | disposition home or self-care (01) ==
LOC: ED 23:31
DX: R07.9 Chest pain, unspecified (principal); R10.12 Left upper quadrant pain; I11.0 Hypertensive heart disease with heart failure; I50.9 Heart failure, unspecified; E11.9 Type 2 diabetes mellitus without complications; K21.9 Gastro-esophageal reflux disease without esophagitis; J45.909 Unspecified asthma, uncomplicated; Z90.49 Acquired absence of other specified parts of digestive tract
CPT/HCPCS: 36415; 71275; 80048; 81001; 82550; 82553; 83880; 84484; 85025; 85379; 93005; 96374; 96375; 99284; J1170; J2405; J3010; Q9967

== ENCOUNTER 2021-08-29 06:30 | Emergency (ER) | payer MEDICAID ==
--- NOTE | 2021-08-29 07:06 | XRay Report ---
CHEST 2 VIEWS INDICATION / CLINICAL INFORMATION: Chest Pain. COMPARISON: Chest x-ray 06/08/2021 FINDINGS: SUPPORT DEVICES: None. HEART / MEDIASTINUM: Mild cardiomegaly. LUNGS / PLEURA: No significant pulmonary or pleural abnormality. No pneumothorax. BONES: No significant osseous abnormality. ADDITIONAL FINDINGS: No significant additional findings. IMPRESSION: 1. No active cardiopulmonary disease. Mild cardiomegaly. Signer Name: Tad Kraus II, MD Signed: 08/29/2021 7:01 AM Workstation Name: [id number]
[2021-08-29 08:54] LABS: Basophils % (Auto) 0.4 % (0.0-1.8); Eosinophils # (Auto) 0.3 K/mm3 (0.0-0.4); Eosinophils % (Auto) 3.8 % (0.0-4.3); Hematocrit 31.9 % (35.5-45.6); Hemoglobin 10.2 gm/dl (11.8-15.2); Lymphocytes # (Auto) 2.6 K/mm3 (1.2-5.4); Lymphocytes % (Auto) 36.8 % (13.4-35.0); Mean Corpuscular HGB Conc 32 % (32-34); Mean Corpuscular Volume 81 fl (84-94); Monocytes # (Auto) 0.7 K/mm3 (0.0-0.8); Monocytes % (Auto) 10.5 % (0.0-7.3); Platelet Count 398 K/mm3 (140-440); Red Blood Count 3.94 M/mm3 (3.65-5.03); Red Cell Distribution Width 16.7 % (13.2-15.2)
[2021-08-29 09:21] LABS: BUN/Creatinine Ratio 13; Blood Urea Nitrogen 15 mg/dL (9-20); Calcium 8.8 mg/dL (8.4-10.2); Hemolysis Index 0
--- NOTE | 2021-08-29 10:07 | Electrocardiograph Report ---
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
--- NOTE | 2021-08-29 22:21 | Emergency Department Report ---
ED Chest Pain HPI - General Chief Complaint: Chest Pain Stated Complaint: CHEST PAIN Time Seen by Provider: 08/29/21 22:06 Source: patient Mode of arrival: Ambulatory Limitations: No Limitations - History of Present Illness Initial Comments: Patient 51-year-old -Spanish male with a history of hypertension, chf, gerd, obesity, asthma, and seasonal allergies who presents for left anterior lateral chest pain rated at 4/10 intermittent with cough for 3 days. Pain is exacerbated by cough. Patient denies shortness of breath or wheezing no dizzine ss or lightheadedness no nausea or vomiting. Patient does use albuterol inhaler as needed has not had to use albuterol inhaler recently. Patient denies PND. Been no fevers or chills. Symptoms are exacerbated by viral exposure. MD Complaint: chest pain - Related Data Home Medications Medication Instructions Recorded Confirmed Last Taken Famotidine [Pepcid] 20 mg PO DAILY 03/23/15 05/27/20 1 Day Ago ~05/26/20 Ascorbic Acid [Vitamin C] 1,000 mg PO QDAY 05/27/20 05/28/20 1 Day Ago ~05/26/20 Previous Rx's Medication Instructions Recorded Last Taken Type Aspirin [Durlaza] 162.5 mg PO QDAY #100 cap.er.24h 05/29/20 Unknown Rx AtorvaSTATin [Lipitor] 40 mg PO DAILY #30 tablet 05/29/20 Unknown Rx Colchicine [Colcrys] 0.6 mg PO QDAY #30 tablet 05/29/20 Unknown Rx Docusate Sodium [Colace CAP] 100 mg PO DAILY #30 capsule 05/29/20 Unknown Rx Ferrous Sulfate [Feosol 325 MG tab] 325 mg PO DAILY #30 05/29/20 Unknown Rx Gabapentin 300 mg PO BID #60 capsule 05/29/20 Unknown Rx Glimepiride [Amaryl] 4 mg PO QDDIAB #30 tablet 05/29/20 Unknown Rx Potassium Chloride [K-Dur] 20 meq PO BID 30 Days #60 tab 05/29/20 Unknown Rx Proventil 0.083% NEBS 90 mcg INHALATION Q4HR PRN #1 05/29/20 Unknown Rx Tizanidine HCl [Zanaflex 2mg CAP] 2 mg PO TID #15 cap 05/29/20 Unknown Rx Torsemide [Demadex] 20 mg PO BID@0600,1800 #60 tablet 05/29/20 Unknown Rx Valsartan [Diovan] 160 mg PO BID 30 Days #60 tablet 05/29/20 Unknown Rx amLODIPine 10 mg PO DAILY 30 Days #30 tablet 05/29/20 Unknown Rx labetaloL [Labetalol 200mg TAB] 200 mg PO BID #60 tablet 05/29/20 Unknown Rx predniSONE [Deltasone] 20 mg PO DAILY #8 tablet 05/29/20 Unknown Rx tiZANidine [Zanaflex 4mg TAB] 2 mg PO TID #30 tablet 05/29/20 Unknown Rx Ibuprofen [Motrin] 600 mg PO Q8H #21 tablet 04/17/21 Unknown Rx Naproxen 375 mg PO BID PRN #14 tab 06/08/21 Unknown Rx methOCARBAMOL [Robaxin TAB] 500 mg PO BID PRN #14 tab 06/08/21 Unknown Rx Famotidine [Pepcid] 20 mg PO BID #30 tablet 08/20/21 Unknown Rx HYDROcodone/APAP 5-325 [[place] 1 - 2 each PO Q6HR PRN #14 tablet 08/20/21 Unknown Rx 5/325] Albuterol Mdi (or & Nicu Only) 2 puff INHALATION PRN PRN #1 each 08/29/21 Unknown Rx [ProAir HFA Inhaler] Ibuprofen [Motrin 800 MG tab] 800 mg PO Q8HR PRN #30 tablet 08/29/21 Unknown Rx predniSONE [Deltasone] 40 mg PO QDAY 5 Days #10 tab 08/29/21 Unknown Rx Allergies Allergy/AdvReac Type Severity Reaction Status Date / Time No Known Allergies Allergy Verified 06/08/21 11:29 Heart Score - HEART Score History: Slightly suspicious EKG: Normal Age: 45-65 Risk factors: 1-2 risk factors Troponin: < normal limit HEART Score: 2 - EKG Read Time Time EKG Completed: 06:36 EKG Read Time: 03:38 (Normal sinus rhythm no ST elevated OR interpreted by ED attending) ED Review of Systems ROS: Stated complaint: CHEST PAIN Other details as noted in HPI Constitutional: denies: chills, fever Eyes: denies: eye pain, eye discharge, vision change ENT: denies: ear pain, throat pain Respiratory: cough. denies: shortness of breath, wheezing Cardiovascular: chest pain Endocrine: no symptoms reported (Left anterior lateral) Gastrointestinal: denies: abdominal pain, nausea, vomiting, diarrhea Genitourinary: denies: urgency, dysuria Musculoskeletal: denies: back pain, joint swelling, arthralgia Skin: denies: rash, lesions Neurological: denies: headache, weakness, numbness, paresthesias, confusion, vertigo Psychiatric: denies: anxiety, depression Hematological/Lymphatic: denies: easy bleeding, easy bruising ED Past Medical Hx - Past Medical History Hx Hypertension: Yes Hx Congestive Heart Failure: Yes Hx Diabetes: Yes Hx GERD: Yes Hx Asthma: Yes Additional medical history: Obesity. Sleep apnea. High Cholesterol. Gout - Surgical History Hx Cholecystectomy: Yes - Social History Smoking Status: Never Smoker Substance Use Type: None (Denies illicit drug use) - Medications Home Medications: Home Medications Medication Instructions Recorded Confirmed Last Taken Type Famotidine [Pepcid] 20 mg PO DAILY 03/23/15 05/27/20 1 Day Ago History ~05/26/20 Ascorbic Acid [Vitamin C] 1,000 mg PO QDAY 05/27/20 05/28/20 1 Day Ago History ~05/26/20 Aspirin [Durlaza] 162.5 mg PO QDAY #100 cap.er.24h 05/29/20 Unknown Rx AtorvaSTATin [Lipitor] 40 mg PO DAILY #30 tablet 05/29/20 Unknown Rx Colchicine [Colcrys] 0.6 mg PO QDAY #30 tablet 05/29/20 Unknown Rx Docusate Sodium [Colace CAP] 100 mg PO DAILY #30 capsule 05/29/20 Unknown Rx Ferrous Sulfate [Feosol 325 MG tab] 325 mg PO DAILY #30 05/29/20 Unknown Rx Gabapentin 300 mg PO BID #60 capsule 05/29/20 Unknown Rx Glimepiride [Amaryl] 4 mg PO QDDIAB #30 tablet 05/29/20 Unknown Rx Potassium Chloride [K-Dur] 20 meq PO BID 30 Days #60 tab 05/29/20 Unknown Rx Proventil 0.083% NEBS 90 mcg INHALATION Q4HR PRN #1 05/29/20 Unknown Rx Tizanidine HCl [Zanaflex 2mg CAP] 2 mg PO TID #15 cap 05/29/20 Unknown Rx Torsemide [Demadex] 20 mg PO BID@0600,1800 #60 tablet 05/29/20 Unknown Rx Valsartan [Diovan] 160 mg PO BID 30 Days #60 tablet 05/29/20 Unknown Rx amLODIPine 10 mg PO DAILY 30 Days #30 tablet 05/29/20 Unknown Rx labetaloL [Labetalol 200mg TAB] 200 mg PO BID #60 tablet 05/29/20 Unknown Rx predniSONE [Deltasone] 20 mg PO DAILY #8 tablet 05/29/20 Unknown Rx tiZANidine [Zanaflex 4mg TAB] 2 mg PO TID #30 tablet 05/29/20 Unknown Rx Ibuprofen [Motrin] 600 mg PO Q8H #21 tablet 04/17/21 Unknown Rx Naproxen 375 mg PO BID PRN #14 tab 06/08/21 Unknown Rx methOCARBAMOL [Robaxin TAB] 500 mg PO BID PRN #14 tab 06/08/21 Unknown Rx Famotidine [Pepcid] 20 mg PO BID #30 tablet 08/20/21 Unknown Rx HYDROcodone/APAP 5-325 [[place] 1 - 2 each PO Q6HR PRN #14 tablet 08/20/21 Unknown Rx 5/325] Albuterol Mdi (or & Nicu Only) 2 puff INHALATION PRN PRN #1 each 08/29/21 Unknown Rx [ProAir HFA Inhaler] Ibuprofen [Motrin 800 MG tab] 800 mg PO Q8HR PRN #30 tablet 08/29/21 Unknown Rx predniSONE [Deltasone] 40 mg PO QDAY 5 Days #10 tab 08/29/21 Unknown Rx ED Physical Exam - General Limitations: No Limitations General appearance: alert, in no apparent distress - Head Head exam: Present: normocephalic, normal inspection - Eye Eye exam: Present: EOMI Pupils: Present: normal accommodation - ENT ENT exam: Present: mucous membranes moist - Neck Neck exam: Present: normal inspection, full ROM. Absent: tenderness, lymphadenopathy - Respiratory Respiratory exam: Present: normal lung sounds bilaterally, chest wall tenderness (Left anterior lateral chest wall tenderness no crepitus no ecchymosis no step- off lung sounds are clear throughout.). Absent: respiratory distress, wheezes, rales, rhonchi, stridor, prolonged expiratory - Cardiovascular Cardiovascular Exam: Present: regular rate, normal rhythm, normal heart sounds. Absent: systolic murmur, diastolic murmur, rubs, gallop - GI/Abdominal GI/Abdominal exam: Present: soft, distended (Obese), normal bowel sounds. Absent: tenderness, bruit, hernia - Rectal Rectal exam: Present: deferred - Extremities Exam Extremities exam: Present: normal inspection, full ROM, normal capillary refill. Absent: tenderness, pedal edema - Back Exam Back exam: Present: normal inspection, full ROM. Absent: CVA tenderness (R), CVA tenderness (L) - Neurological Exam Neurological exam: Present: alert, oriented X3, CN II-XII intact, normal gait - Expanded Neurological Exam Expanded Patient oriented to: Present: person, place, time Speech: Present: fluid speech Motor strength exam: RUE: 5, LUE: 5, RLE: 5, LLE: 5 Best Eye Response (Jayna): (4) open spontaneously Best Motor Response (Jayna): (6) obeys commands Best Verbal Response (Jayna): (5) oriented [place] Total: 15 - Psychiatric Psychiatric exam: Present: normal affect, normal mood - Skin Skin exam: Present: warm, dry, intact, normal color. Absent: rash ED Course Vital Signs 08/29/21 08/29/21 06:40 15:32 Temperature 98.7 F 98.3 F Pulse Rate 76 74 Respiratory 16 20 Rate Blood Pressure 147/76 170/80 O2 Sat by Pulse 98 98 Oximetry TRISTEN score - Tristen Score Age > 65: (0) No Aspirin use within the Past 7 Days: (0) No 3 or more CAD Risk Factors: (1) Yes 2 or more Angina events in past 24 hrs: (0) No Known CAD with more than 50% Stenosis: (0) No Elevated Cardiac Markers: (0) No ST Deviation Greater than 0.5mm: (0) No TRISTEN Score: 1 ED Medical Decision Making - Lab Data Result diagrams: 08/29/21 07:29 08/29/21 07:29 Labs 08/29/21 08/29/21 08/29/21 07:29 07:29 10:35 WBC 7.0 RBC 3.94 Hgb 10.2 L Hct 31.9 L MCV 81 L MCH 26 L MCHC 32 RDW 16.7 H Plt Count 398 Lymph % (Auto) 36.8 H [place] % (Auto) 10.5 H Eos % (Auto) 3.8 Baso % (Auto) 0.4 Lymph # (Auto) 2.6 [place] # (Auto) 0.7 Eos # (Auto) 0.3 Baso # (Auto) 0.0 Seg Neutrophils % 48.5 Seg Neutrophils # 3.4 Sodium 142 Potassium 4.1 Chloride 106.0 Carbon Dioxide 24 Anion Gap 16 BUN 15 Creatinine 1.2 Estimated GFR > 60 BUN/Creatinine Ratio 13 Glucose 127 H Calcium 8.8 Troponin T < 0.010 Lipase 34 08/29/21 17:53 WBC RBC Hgb Hct MCV MCH MCHC RDW Plt Count Lymph % (Auto) [place] % (Auto) Eos % (Auto) Baso % (Auto) Lymph # (Auto) [place] # (Auto) Eos # (Auto) Baso # (Auto) Seg Neutrophils % Seg Neutrophils # Sodium Potassium Chloride Carbon Dioxide Anion Gap BUN Creatinine Estimated GFR BUN/Creatinine Ratio Glucose Calcium Troponin T < 0.010 Lipase - EKG Data EKG shows normal: sinus rhythm, axis, intervals, QRS complexes, ST-T waves Rate: normal - EKG Data When compared to previous EKG there are: previous EKG unavailable Interpretation: normal EKG (Normal sinus rhythm no ST elevated OR interpreted by ED attending) - Radiology Data Radiology results: report reviewed, image reviewed CHEST 2 VIEWS INDICATION / CLINICAL INFORMATION: Chest Pain. COMPARISON: Chest x-ray 06/08/2021 FINDINGS: SUPPORT DEVICES: None. HEART / MEDIASTINUM: Mild cardiomegaly. LUNGS / PLEURA: No significant pulmonary or pleural abnormality. No pneumothorax. BONES: No significant osseous abnormality. ADDITIONAL FINDINGS: No significant additional findings. IMPRESSION: 1. No active cardiopulmonary disease. Mild cardiomegaly. Signer Name: Leyla Kraus II, MD Signed: 08/29/2021 7:01 AM Workstation Name: [id number] Transcribed By: KAREEM Dictated By: LEYLA KRAUS II, MD Electronically Authenticated By: LEYLA KRAUS II, MD Signed Date/Time: 08/29/21700 DD/ 0 TD/TT: - Medical Decision Making Heart score is 2, TRISTEN score is 1, labs noted above troponin less than 0.01x2' EKG normal sinus rhythm no ST elevated OR. Chest x-ray normal no infiltrates no opacities mild cardiomegaly which is chronic for this patient. There is no nausea no vomiting no fever no chills no lightheadedness no dizziness chest pain is only with i cough only. There is no wheezing stridor or shortness of breath, patient denies activity intolerance. Plan DC home, use albuterol as scheduled Short burst prednisone, NSAIDs as needed chest wall pain, follow-up with primary care doctor in 2 days. Return to emergency department should s ymptoms worsen. Patient verbalized agreement and understanding with discharge plan. Patient DC'd home in stable condition at this time. Critical care attestation.: If time is entered above; I have spent that time in minutes in the direct care of this critically ill patient, excluding procedure time. ED Disposition Clinical Impression: Nonspecific chest pain Disposition: 01 HOME / SELF CARE / HOMELESS Is pt being admited?: No Does the pt Need Aspirin: No Condition: Stable Instructions: Nonspecific Chest Pain, Adult Additional Instructions: Take medications as prescribed, follow-up with your doctor in 2 to 3 days. Return to emergency department should symptoms worsen. Prescriptions: predniSONE [Deltasone] 40 mg PO QDAY 5 Days #10 tab Ibuprofen [Motrin 800 MG tab] 800 mg PO Q8HR PRN #30 tablet PRN Reason: pain Albuterol Mdi (or & Nicu Only) [ProAir HFA Inhaler] 2 puff INHALATION PRN PRN #1 each PRN Reason: Shortness Of Breath Referrals: DANIEL ABREU MD [Primary Care Provider] - 3-5 Days Forms: Work/School Release Form(ED) Time of Disposition: 22:38
[2021-08-29 23:10] VITALS: BP 195/92
== END 2021-08-29 22:50 | disposition home or self-care (01) ==
LOC: ED 06:30
DX: R07.9 Chest pain, unspecified (principal); I10 Essential (primary) hypertension; E11.9 Type 2 diabetes mellitus without complications; J45.909 Unspecified asthma, uncomplicated
CPT/HCPCS: 36415; 71046; 80048; 83690; 84484; 85025; 93005; 99283

== ENCOUNTER → 2021-08-30 | Outpatient (CLI) | payer MEDICAID | END | disposition home or self-care (01) | LOC: SLR 11:00 | PROVIDERS: ATTEND Internal Medicine | DX: G47.33 Obstructive sleep apnea (adult) (pediatric) (principal) | CPT/HCPCS: 95811 ==

== ENCOUNTER 2021-09-25 22:44 | Emergency (ER) | payer MEDICAID ==
--- NOTE | 2021-09-26 08:55 | XRay Report ---
LEFT SHOULDER 3 VIEWS INDICATION: SHOULDER PAIN. COMPARISON: None. IMPRESSION: No acute osseous or soft tissue abnormality. No significant DJD. Signer Name: Matheus Gutiérrez Jr, MD Signed: 09/26/2021 8:51 AM Workstation Name: [id number]
[2021-09-26] MEDS ORDERED: predniSONE 20 MG TAB PO ONE (11:04)
[2021-09-26] MEDS ORDERED: HYDROcodone/ACETAMINOPHEN 5-325 MG TAB PO ONE (11:04)
[2021-09-26] MEDS ORDERED: IBUPROFEN 600 MG TAB PO ONE (11:04)
--- NOTE | 2021-09-26 11:04 | Emergency Department Report ---
ED General Adult HPI - General Chief complaint: Neck Pain/Injury Stated complaint: NECK HURT Time Seen by Provider: 09/26/21 10:54 Source: patient Mode of arrival: Ambulatory Limitations: No Limitations - History of Present Illness Initial comments: 51-year-old male with past medical history of hypertension, CHF, asthma, diabetes reports to the ER with complaints of left shoulder pain after waking up this morning due to sleeping on his left side. Patient denies any acute injury. Patient reports no other acute symptoms at this time. - Related Data Home Medications Medication Instructions Recorded Confirmed Last Taken Famotidine [Pepcid] 20 mg PO DAILY 03/23/15 05/27/20 1 Day Ago ~05/26/20 Ascorbic Acid [Vitamin C] 1,000 mg PO QDAY 05/27/20 05/28/20 1 Day Ago ~05/26/20 Previous Rx's Medication Instructions Recorded Last Taken Type Aspirin [Durlaza] 162.5 mg PO QDAY #100 cap.er.24h 05/29/20 Unknown Rx AtorvaSTATin [Lipitor] 40 mg PO DAILY #30 tablet 05/29/20 Unknown Rx Colchicine [Colcrys] 0.6 mg PO QDAY #30 tablet 05/29/20 Unknown Rx Docusate Sodium [Colace CAP] 100 mg PO DAILY #30 capsule 05/29/20 Unknown Rx Ferrous Sulfate [Feosol 325 MG tab] 325 mg PO DAILY #30 05/29/20 Unknown Rx Gabapentin 300 mg PO BID #60 capsule 05/29/20 Unknown Rx Glimepiride [Amaryl] 4 mg PO QDDIAB #30 tablet 05/29/20 Unknown Rx Potassium Chloride [K-Dur] 20 meq PO BID 30 Days #60 tab 05/29/20 Unknown Rx Proventil 0.083% NEBS 90 mcg INHALATION Q4HR PRN #1 05/29/20 Unknown Rx Tizanidine HCl [Zanaflex 2mg CAP] 2 mg PO TID #15 cap 05/29/20 Unknown Rx Torsemide [Demadex] 20 mg PO BID@0600,1800 #60 tablet 05/29/20 Unknown Rx Valsartan [Diovan] 160 mg PO BID 30 Days #60 tablet 05/29/20 Unknown Rx amLODIPine 10 mg PO DAILY 30 Days #30 tablet 05/29/20 Unknown Rx labetaloL [Labetalol 200mg TAB] 200 mg PO BID #60 tablet 05/29/20 Unknown Rx predniSONE [Deltasone] 20 mg PO DAILY #8 tablet 05/29/20 Unknown Rx tiZANidine [Zanaflex 4mg TAB] 2 mg PO TID #30 tablet 05/29/20 Unknown Rx Ibuprofen [Motrin] 600 mg PO Q8H #21 tablet 04/17/21 Unknown Rx Naproxen 375 mg PO BID PRN #14 tab 06/08/21 Unknown Rx methOCARBAMOL [Robaxin TAB] 500 mg PO BID PRN #14 tab 06/08/21 Unknown Rx Famotidine [Pepcid] 20 mg PO BID #30 tablet 08/20/21 Unknown Rx HYDROcodone/APAP 5-325 [[place] 1 - 2 each PO Q6HR PRN #14 tablet 08/20/21 Unknown Rx 5/325] Albuterol Mdi (or & Nicu Only) 2 puff INHALATION PRN PRN #1 each 08/29/21 Unknown Rx [ProAir HFA Inhaler] Ibuprofen [Motrin 800 MG tab] 800 mg PO Q8HR PRN #30 tablet 08/29/21 Unknown Rx predniSONE [Deltasone] 40 mg PO QDAY 5 Days #10 tab 08/29/21 Unknown Rx Ibuprofen [Motrin] 600 mg PO Q8H PRN 7 Days #21 tablet 09/26/21 Unknown Rx methOCARBAMOL [Robaxin TAB] 500 mg PO Q8HR PRN 7 Days #21 09/26/21 Unknown Rx tablet predniSONE [Deltasone] 40 mg PO QDAY 5 Days #10 tab 09/26/21 Unknown Rx Allergies Allergy/AdvReac Type Severity Reaction Status Date / Time No Known Allergies Allergy Verified 06/08/21 11:29 ED Review of Systems ROS: Stated complaint: NECK HURT Other details as noted in HPI Left shoulder pain Comment: All other systems reviewed and negative Musculoskeletal: other (Left shoulder pain.) ED Past Medical Hx - Past Medical History Previous Medical History?: Yes Hx Hypertension: Yes Hx Congestive Heart Failure: Yes Hx Diabetes: Yes Hx GERD: Yes Hx Asthma: Yes Additional medical history: Obesity. Sleep apnea. High Cholesterol. Gout - Surgical History Hx Cholecystectomy: Yes - Social History Smoking Status: Never Smoker Substance Use Type: None (Denies illicit drug use) - Medications Home Medications: Home Medications Medication Instructions Recorded Confirmed Last Taken Type Famotidine [Pepcid] 20 mg PO DAILY 03/23/15 05/27/20 1 Day Ago History ~05/26/20 Ascorbic Acid [Vitamin C] 1,000 mg PO QDAY 05/27/20 05/28/20 1 Day Ago History ~05/26/20 Aspirin [Durlaza] 162.5 mg PO QDAY #100 cap.er.24h 05/29/20 Unknown Rx AtorvaSTATin [Lipitor] 40 mg PO DAILY #30 tablet 05/29/20 Unknown Rx Colchicine [Colcrys] 0.6 mg PO QDAY #30 tablet 05/29/20 Unknown Rx Docusate Sodium [Colace CAP] 100 mg PO DAILY #30 capsule 05/29/20 Unknown Rx Ferrous Sulfate [Feosol 325 MG tab] 325 mg PO DAILY #30 05/29/20 Unknown Rx Gabapentin 300 mg PO BID #60 capsule 05/29/20 Unknown Rx Glimepiride [Amaryl] 4 mg PO QDDIAB #30 tablet 05/29/20 Unknown Rx Potassium Chloride [K-Dur] 20 meq PO BID 30 Days #60 tab 05/29/20 Unknown Rx Proventil 0.083% NEBS 90 mcg INHALATION Q4HR PRN #1 05/29/20 Unknown Rx Tizanidine HCl [Zanaflex 2mg CAP] 2 mg PO TID #15 cap 05/29/20 Unknown Rx Torsemide [Demadex] 20 mg PO BID@0600,1800 #60 tablet 05/29/20 Unknown Rx Valsartan [Diovan] 160 mg PO BID 30 Days #60 tablet 05/29/20 Unknown Rx amLODIPine 10 mg PO DAILY 30 Days #30 tablet 05/29/20 Unknown Rx labetaloL [Labetalol 200mg TAB] 200 mg PO BID #60 tablet 05/29/20 Unknown Rx predniSONE [Deltasone] 20 mg PO DAILY #8 tablet 05/29/20 Unknown Rx tiZANidine [Zanaflex 4mg TAB] 2 mg PO TID #30 tablet 05/29/20 Unknown Rx Ibuprofen [Motrin] 600 mg PO Q8H #21 tablet 04/17/21 Unknown Rx Naproxen 375 mg PO BID PRN #14 tab 06/08/21 Unknown Rx methOCARBAMOL [Robaxin TAB] 500 mg PO BID PRN #14 tab 06/08/21 Unknown Rx Famotidine [Pepcid] 20 mg PO BID #30 tablet 08/20/21 Unknown Rx HYDROcodone/APAP 5-325 [[place] 1 - 2 each PO Q6HR PRN #14 tablet 08/20/21 Unknown Rx 5/325] Albuterol Mdi (or & Nicu Only) 2 puff INHALATION PRN PRN #1 each 08/29/21 Unknown Rx [ProAir HFA Inhaler] Ibuprofen [Motrin 800 MG tab] 800 mg PO Q8HR PRN #30 tablet 08/29/21 Unknown Rx predniSONE [Deltasone] 40 mg PO QDAY 5 Days #10 tab 08/29/21 Unknown Rx Ibuprofen [Motrin] 600 mg PO Q8H PRN 7 Days #21 tablet 09/26/21 Unknown Rx methOCARBAMOL [Robaxin TAB] 500 mg PO Q8HR PRN 7 Days #21 09/26/21 Unknown Rx tablet predniSONE [Deltasone] 40 mg PO QDAY 5 Days #10 tab 09/26/21 Unknown Rx ED Physical Exam - General Limitations: No Limitations ED Course Vital Signs 09/26/21 09/26/21 00:46 12:06 Temperature 99.3 F 98.9 F Pulse Rate 77 98 H Respiratory 20 14 Rate Blood Pressure 184/80 Blood Pressure 162/78 [Right] O2 Sat by Pulse 98 98 Oximetry ED Medical Decision Making - Radiology Data [facility] [address] [place] [address] XRay Report Signed Patient: DANNA GRACE MR#: [id number] : 1970 Acct:[id number] Age/Sex: 51 / M ADM Date: 09/25/21 Loc: ED Attending Dr: Ordering Physician: TG MEYERS MD Date of Service: 09/26/21 Procedure(s): XR shoulder 2+V LT Accession Number(s): [id number] cc: ED MD LUIGI Fluoro Time In Minutes: LEFT SHOULDER 3 VIEWS INDICATION: SHOULDER PAIN. COMPARISON: None. IMPRESSION: No acute osseous or soft tissue abnormality. No significant DJD. Signer Name: Matheus Gutiérrez Jr, MD Signed: 09/26/2021 8:51 AM Workstation Name: [id number] Transcribed By: TTR Dictated By: MATHEUS GUTIÉRREZ JR, MD Electronically Authenticated By: MATHEUS GUTIÉRREZ JR, MD Signed Date/Time: 09/26/21850 DD/ 9 TD/TT: - Medical Decision Making 51-year-old male reports to the ER with complaints of left shoulder pain after waking up this morning due to sleeping on his left side. Patient reports no other acute symptoms at this time. On physical exam there is tenderness noted to the left upper shoulder area. Patient reports swelling Physical exam left shoulder and right shoulder equal and appearance no obvious swelling noted. xray is negative for any acute process. Patient given oral medication for pain. Patient to be discharged home with pain medication. Patient agrees with plan of care verbalized understanding. Patient informed if symptoms are to get worse to report back to the ER. Patient informed to follow-up with his primary care provider as needed. Critical care attestation.: If time is entered above; I have spent that time in minutes in the direct care of this critically ill patient, excluding procedure time. ED Disposition Clinical Impression: Left shoulder pain Qualifiers: Chronicity: acute Qualified Code(s): M25.512 - Pain in left shoulder Disposition: 01 HOME / SELF CARE / HOMELESS Is pt being admited?: No Condition: Stable Instructions: Shoulder Pain, Musculoskeletal Pain Prescriptions: predniSONE [Deltasone] 40 mg PO QDAY 5 Days #10 tab Ibuprofen [Motrin] 600 mg PO Q8H PRN 7 Days #21 tablet PRN Reason: Pain methOCARBAMOL [Robaxin TAB] 500 mg PO Q8HR PRN 7 Days #21 tablet PRN Reason: Muscle Spasm Referrals: DANIEL ABREU MD [Primary Care Provider] - 3-5 Days Time of Disposition: 11:29
[2021-09-26 12:07] VITALS: BP 162/78
== END 2021-09-26 12:06 | disposition home or self-care (01) ==
LOC: ED 22:44
DX: M25.512 Pain in left shoulder (principal); I11.0 Hypertensive heart disease with heart failure; I50.9 Heart failure, unspecified; E11.9 Type 2 diabetes mellitus without complications; K21.9 Gastro-esophageal reflux disease without esophagitis; J45.909 Unspecified asthma, uncomplicated; Z90.49 Acquired absence of other specified parts of digestive tract; Z79.899 Other long term (current) drug therapy
CPT/HCPCS: 99283